=== PATIENT | male | born 1955 | race Caucasian/White ===

== ENCOUNTER 2016-07-23 17:52 | Emergency (ER) | payer OTHER ==
[2016-07-23 17:56] VITALS: TEMP 97.7
--- NOTE | 2016-07-23 18:39 | DX ---
Right shoulder 2 views History: Fall, pain. Comparison: None available. Findings: There is an oblique moderately comminuted fracture of the proximal humeral diametaphysis wi th extension to the surgical neck. There is approximately one shaft width lateral and posterior displ acement with moderate posterior angulation. Alignment at the glenohumeral joint is normal. The acromi oclavicular and coracoclavicular relationships are normal. Impression: Displaced comminuted fracture of the proximal humerus.
[2016-07-23] MEDS ORDERED: HYDROmorphONE/DILAUDID 1 MG/ML SYR ONE (18:47)
--- NOTE | 2016-07-23 18:50 | EDPHY ---
H & P Time Seen by Provider: 07/23/16 17:59 HPI/ROS: HPI Right shoulder injury. 60-year-old male by private vehicle with his sister. This patient slipped on the ice on an outstretched right hand. He presents with isolated right shoulder pain and deformity. He denies any numbness or weakness in his right hand. He is right-hand dominant. He is not on any antiplatelet or anticoagulant medications. ROS: Constitutional: No fever, no chills. No weakness. Eyes: No discharge. No changes in vision. ENT: No sore throat. No nasal congestion or rhinorrhea. Respiratory: No cough. No shortness of breath. Cardiac: No chest pain, no palpitations. Gastrointestinal: No abdominal pain, no vomiting, no diarrhea. Genitourinary: No hematuria. No dysuria or increased frequency with urination. Musculoskeletal: No back pain. No neck pain. As above, denies other extremity pain. Skin: No rashes. Neurological: No headache. No focal weakness or altered sensation. Past medical history: Schizophrenia. His care is through the [facility]. Social history: Nonsmoker. Lives alone. Here with his sister currently Physical Exam: General Appearance: Alert, no distress. This patient is responding to questions appropriately and in full sentences. This patient appears well- hydrated and well-nourished. Head: Normocephalic atraumatic. Face: Facial bones are stable on palpation. Eyes: Pupils equal and round and reactive to light, no pallor or injection. No lid erythema or edema. Respiratory: There are no retractions, lungs are clear to auscultation with good air movement bilaterally. Chest wall is stable to AP and lateral palpation. Cardiovascular: Regular rate and rhythm. No murmur. Gastrointestinal: Abdomen is soft and nontender, no masses, bowel sounds normal. Neurological: Motor sensory function is intact. Cranial nerves are normal. Cerebellar function intact. Skin: Warm and dry, no rashes. No lacerations, abrasions or contusions. Musculoskeletal: Neck is supple and nontender. The trachea is midline. No midline cervical, thoracic, lumbar or sacral tenderness on palpation. No flank tenderness on palpation. Right upper extremity exam: Significant for a deformity and diffuse swelling involving the upper humerus and deltoid region. He is unable to move the right shoulder at all without significant pain. The axillary nerve distribution is intact. The radial, ulnar and median nerve distributions are intact. Good capillary refill in all digits of the right hand. Strong radial and ulnar pulses. Otherwise, extremities are symmetrical, full range of motion. All joints in the bilateral upper and bilateral lower extremities range without pain or impingement except noted. No tenderness on palpation of the long bones in the bilateral upper and bilateral lower extremities except noted. Psychiatric: No agitation. No depression. Database: EKG: Imaging: Right shoulder x-ray series: Displaced comminuted fracture of the proximal humerus. Interpreted by me. Procedures: Emergency department course: IV placed. He was started on IV normal saline with 500 cc to be given over the next hour. 1 mg of IV hydromorphone given for pain. He was placed in a shoulder immobilizer. Orthopedics paged. 7:20 p.m., spoke with Dr. Karan Mccurdy of the Orthopedic service. He has reviewed this patient's x-rays. He agrees with above management and discharg to home. He will see this patient in his office tomorrow. 7:35 p.m., patient re-evaluated. He is in a shoulder immobilizer. Plan for discharge and follow up with Dr. Karan Mccurdy tomorrow in the office discussed with him and his sister. They endorse. He will be sent home with Vicodin for pain control. Return to emergency department precautions were reviewed with him. All of his questions were answered. He was discharged in good condition. Differential Diagnosis: The differential diagnosis on this patient includes but is not limited to proximal humerus fracture. Glenohumeral joint dislocation/subluxation, significant neurovascular injury unlikely. This represents a partial list of diagnoses considered. These considerations are based on history, physical exam , past history, reassessment and diagnostic testing. Smoking Status: Current every day smoker Constitutional: Initial Vital Signs Temperature (C) 36.5 C 07/23/16 17:54 Heart Rate 93 07/23/16 17:54 Respiratory Rate 18 07/23/16 17:54 Blood Pressure 99/66 L 07/23/16 17:54 O2 Sat (%) 99 07/23/16 17:54 O2 Delivery Mode Room Air Allergies/Adverse Reactions: No Known Allergies Allergy (Verified 01/19/16 16:49) Home Medications: Medication Instructions Recorded OLANZapine [ZyPREXA 2.5 mg (*)] 2.5 mg PO 01/19/16 Docusate Sodium [Colace 100 MG (*)] 100 mg PO TID #30 cap 07/23/16 Hydrocodone/APAP 5/325 [[place] 1 - 2 tab PO Q4-6PRN PRN #30 tab 07/23/16 5/325 (*)] Medical Decision Making - Data Points Medications Given: Discontinued Medications Acetaminophen/Hydrocodone Bitart ([place] 5/325mg Prepack#6) 1 btl TAKEHOME EDNOW ONE Stop: 07/23/16 19:44 Last Admin: 07/23/16 19:58 Dose: 1 btl Hydromorphone HCl (Dilaudid) 0.5 mg IVP EDNOW ONE Stop: 07/23/16 19:04 Last Admin: 07/23/16 19:08 Dose: 0.5 mg Hydromorphone HCl (Dilaudid) 0.5 mg IVP EDNOW ONE Stop: 07/23/16 19:16 Last Admin: 07/23/16 19:16 Dose: 0.5 mg Departure - Departure Disposition: Home, Routine, Self-Care Clinical Impression: Closed fracture of right proximal humerus Condition: Good Instructions: Hydrocodone/Acetaminophen (By mouth), Arm Fracture in Adults (ED) Additional Instructions: Read and follow provided instructions. Follow-up with franchise specialist, Dr. Karan Mccurdy, tomorrow as discussed. Call his office at 9:00 a.m. for appointment time.. Take medication as prescribed. Ibuprofen dosin mg every 6 hours with meals for the next 3 days only. Salado/Percocet dosin-2 every 4-[address] not drive on this medication. Return to the emergency department for uncontrolled pain, loss of sensation or weakness in your right hand or other serious concerns. Referrals: Karan Mccurdy MD [Medical Doctor] - As per Instructions Prescriptions: Docusate Sodium [Colace 100 MG (*)] 100 mg PO TID #30 cap Hydrocodone/APAP 5/325 [[place] 5/325 (*)] 1 - 2 tab PO Q4-6PRN PRN #30 tab PRN Reason: Pain, Moderate
[2016-07-23] MEDS ORDERED: HYDROmorphONE/DILAUDID 1 MG/ML SYR IVP ONE ×2 (19:03→19:15)
[2016-07-23] MEDS ORDERED: HYDROCOD/APAP 5/325 PREPACK#6 BTL TAKEHOME ONE (19:43)
[2016-07-23 20:00] VITALS: BP 131/79; PULSE 98; RESP 20; O2SAT 96
== END 2016-07-23 20:00 | disposition home or self-care (01) ==
DX: S42.202A Unspecified fracture of upper end of left humerus, initial encounter for closed fracture (principal); F17.200 Nicotine dependence, unspecified, uncomplicated; W00.0XXA Fall on same level due to ice and snow, initial encounter
CPT/HCPCS: 96374; A4565; J1170

== ENCOUNTER 2016-12-24 12:44 | Emergency (ER) | payer OTHER ==
--- NOTE | 2016-12-24 12:51 | EDPHY ---
H & P Time Seen by Provider: 12/24/16 12:48 HPI/ROS: CHIEF COMPLAINT: Intoxication, fall HISTORY OF PRESENT ILLNESS: The patient is a 61-year-old homeless alcoholic man with a history of schizophrenia who comes to the emergency department after a fall. He was drinking today and while ambulating fell forward. Paramedics were concerned about it tongue laceration but none is visible. He does have cracked lips and looks dehydrated. He has an abrasion to his right forearm. He denies head neck back pain. No other obvious injuries. Moving all extremities. He is awake and alert and answering all questions appropriately. REVIEW OF SYSTEMS: Constitutional: denies: chills, fever, recent illness, recent injury EENTM: See HPI Respiratory: denies: cough, shortness of breath Cardiac: denies: chest pain, irregular heart rate, lightheadedness, palpitations Gastrointestinal/Abdominal: denies: abdominal pain, diarrhea, nausea, vomiting, blood streaked stools Genitourinary: denies: dysuria, frequency, hematuria, pain Musculoskeletal: denies: joint pain, muscle pain Skin: See HPI Neurological: denies: headache, numbness, paresthesia, tingling, dizziness, weakness Hematologic/Lymphatic: denies: blood clots, easy bleeding, easy bruising Immunologic/allergic: denies: HIV/AIDS, transplant EXAM: GENERAL: Well-appearing, well-nourished and in no acute distress. HEAD: Atraumatic, normocephalic. EYES: Pupils equal round and reactive to light, extraocular movements intact, sclera anicteric, conjunctiva are normal. ENT: TMs normal, nares patent, oropharynx clear without exudates. Moist mucous membranes. NECK: Normal range of motion, supple without lymphadenopathy or JVD. Cervical collar cleared by me on arrival LUNGS: Breath sounds clear to auscultation bilaterally and equal. No wheezes rales or rhonchi. HEART: Regular rate and rhythm without murmurs, rubs or gallops. ABDOMEN: Soft, nontender, normoactive bowel sounds. No guarding, no rebound. No masses appreciated. BACK: No CVA tenderness, no spinal tenderness, step-offs or deformities EXTREMITIES: Normal range of motion, no pitting or edema. No clubbing or cyanosis. NEUROLOGICAL: Cranial nerves II through XII grossly intact. Normal speech, normal gait. 5/5 strength, normal movement in all extremities, normal sensation PSYCH: Normal mood, normal affect. SKIN: Abrasion to right forearm Source: Patient Exam Limitations: No limitations - Medical/Surgical History Hx Asthma: No Hx Chronic Respiratory Disease: No Hx Diabetes: No Hx Cardiac Disease: No Hx Renal Disease: No Hx Cirrhosis: No Hx Alcoholism: No Hx HIV/AIDS: No Hx Splenectomy or Spleen Trauma: No Other PMH: Schizophrenia, falls, R arm fx. '05. alcoholic - Family History Significant Family History: No pertinent family hx - Social History Smoking Status: Current every day smoker Alcohol Use: Heavy Drug Use: None Constitutional: Initial Vital Signs Temperature (C) 37.0 C 12/24/16 12:44 Heart Rate 102 H 12/24/16 12:44 Respiratory Rate 18 12/24/16 12:44 Blood Pressure 108/70 12/24/16 12:44 O2 Sat (%) 95 12/24/16 12:44 O2 Delivery Mode Room Air Allergies/Adverse Reactions: No Known Allergies Allergy (Verified 01/19/16 16:49) Home Medications: Medication Instructions Recorded OLANZapine [ZyPREXA 2.5 mg (*)] 2.5 mg PO 01/19/16 Docusate Sodium [Colace 100 MG (*)] 100 mg PO TID #30 cap 07/23/16 Hydrocodone/APAP 5/325 [[place] 1 - 2 tab PO Q4-6PRN PRN #30 tab 07/23/16 5/325 (*)] Medical Decision Making ED Course/Re-evaluation: 2:20 p.m. the patient is ambulatory. He he is increasingly sober. He declines any further workup or testing. He is ready to go. No signs significant injury. His abrasions been cleaned and dressed. He continues to deny neck pain . he is getting dressed. Differential Diagnosis: Partial list of the Differential diagnosis considered include but were not limited to; abrasion, oral injury, intoxication and although unlikely based on the history and physical exam, I also considered head injury, C spine in the. I discussed these differential diagnoses and the plan with the patient as well as the usual and expected course. The patient understands that the diagnosis is provisional and that in medicine we are not always correct and that further workup is often warranted. Usual and customary warnings were given. All of the patient's questions were answered. The patient was instructed to return to the emergency department should the symptoms at all worsen or return, otherwise to followup with the physician as we discussed. Departure - Departure Disposition: Home, Routine, Self-Care Clinical Impression: Abrasion Alcoholic intoxication Qualifiers: Complication of substance-induced condition: uncomplicated Qualified Code(s): F10.920 - Alcohol use, unspecified with intoxication, uncomplicated Condition: Fair Instructions: Alcohol Intoxication (ED), Abrasion (ED) Referrals: Patient,NotPresent [Unknown] - As per Instructions [facility],. [Clinic] - As per Instructions
[2016-12-24 12:58] VITALS: RESP 18; O2SAT 95
[2016-12-24 14:38] VITALS: BP 106/72; PULSE 100; TEMP 98.4
== END 2016-12-24 14:37 | disposition home or self-care (01) ==
LOC: EDUNIT#
DX: S50.811A Abrasion of right forearm, initial encounter (principal); F10.120 Alcohol abuse with intoxication, uncomplicated; F17.200 Nicotine dependence, unspecified, uncomplicated; W19.XXXA Unspecified fall, initial encounter

== ENCOUNTER 2018-08-16 11:19 | Emergency (ER) | payer OTHER ==
[2018-08-16] MEDS ORDERED: TDAP ADULT 0.5 ML INJ (BOOSTRIX) IM ONE (11:37)
--- NOTE | 2018-08-16 11:41 | EDPHY ---
H & P Stated Complaint: ETOH, face lac Time Seen by Provider: 08/16/18 11:36 HPI/ROS: CHIEF COMPLAINT: Head injury, witnessed fall HISTORY OF PRESENT ILLNESS: 63-year-old male history of alcohol abuse, schizophrenia, arrives via ambulance after he had a witnessed fall walking into the [employer]. Brief loss of consciousness. No seizure activity. This was described as a mechanical, non syncopal episode with no seizure activity noted. He admits to heavy beer ingestion this morning. He has no complaints of pain or discomfort. Denies: Nausea, vomiting, chest pain, dyspnea, back pain, abdominal pain, seizure, hallucination.. PRIMARY CARE PROVIDER: REVIEW OF SYSTEMS: 10 systems reviewed and negative with the exception of the elements mentioned in the history of present illness PAST MEDICAL/SURGICAL HISTORY: Negative dependence. Schizophrenia. Cirrhosis secondary to hepatitis C. Alcohol abuse. SOCIAL HISTORY: Self disclosed alcohol use today PHYSICAL EXAM 1) GENERAL: poorly kept,, alert and oriented. Smells of alcohol Appears to be in no acute distress. Answering questions appropriately. 2) HEAD: Normocephalic, right frontal abrasion and hematoma is, laceration measuring 1.5 cm lateral to the right eyebrow 3) HEENT: Pupils equal, round, reactive to light bilaterally. Negative Horners. Nasopharynx, oropharynx, clear. No deformity or angulation of nose. No septal hematoma. No rhinorrhea. No oral trauma. Ears bilaterally with normal tympanic membranes. No hemotympanum. No fluid or blood in the external auditory canal. No raccoon eyes. No Maldonado sign. Edentulous. TMJ bilaterally nontender, facial bones nontender including the zygomatic arch, maxilla mandible. 4) NECK: Patient has self-extricated from pre-hospital cervical collar. He has no midline C-spine pain. I recommended replacement of cervical collar which she will not allow me to perform. 5) LUNGS: Clear to auscultation bilaterally, no wheezes, no rhonchi, no retractions. No obvious signs of trauma. No chest wall pain. No flaring, no grunting. Moving symmetrically. No crepitus. 6) HEART: [Regular rate and rhythm, 7) ABDOMEN: No guarding, no rebound, no focal tenderness, no peritoneal signs, no signs of trauma, no ecchymosis 8) MUSCULOSKELETAL: Moving all extremities, no focal areas of tenderness, no obvious trauma. 9) BACK: No midline vertebral tenderness, no fluctuance, no step-off, no obvious trauma, no visual or palpable abnormality. 10) SKIN: No laceration. No abrasion DIFFERENTIAL DIAGNOSIS: Not necessarily in any particular order, my differential diagnosis includes, but is not limited to, concussion, skull fracture, intraparenchymal contusion, subarachnoid, subdural and epidural hematoma. The patient understands that this diagnosis is provisional and can never be 100% accurate. - Medical/Surgical History Hx Asthma: No Hx Chronic Respiratory Disease: No Hx Diabetes: No Hx Cardiac Disease: No Hx Renal Disease: No Hx Cirrhosis: No Hx Alcoholism: No Hx HIV/AIDS: No Hx Splenectomy or Spleen Trauma: No Other PMH: Schizophrenia, falls, R arm fx. '05. alcoholic - Social History Smoking Status: Current every day smoker Constitutional: Initial Vital Signs Temperature (C) 37.0 C 08/16/18 11:24 Heart Rate 75 08/16/18 11:24 Respiratory Rate 16 08/16/18 11:24 Blood Pressure 122/70 H 08/16/18 11:24 O2 Sat (%) 95 08/16/18 11:24 O2 Delivery Mode Room Air Allergies/Adverse Reactions: No Known Allergies Allergy (Verified 08/16/18 11:26) Home Medications: Medication Instructions Recorded OLANZapine [ZyPREXA 2.5 mg (*)] 2.5 mg PO 01/19/16 Docusate Sodium [Colace 100 MG (*)] 100 mg PO TID #30 cap 07/23/16 Hydrocodone/APAP 5/325 [[place] 1 - 2 tab PO Q4-6PRN PRN #30 tab 07/23/16 5/325 (*)] Medical Decision Making - Diagnostics Imaging Results: Imaging Impressions Cervical Spine CT 08/16/18 11:37 Impression: Multilevel degenerative features, as above-detailed, similar in distribution as seen on a study of 01/15/2016, with no acute cervical osseous abnormality identified. If there is further clinical concern regarding the patient's symptoms, correlative MR imaging could be considered, if otherwise not contraindicated. Findings were discussed with Earl Rooney PA-C at 12:31, on 08/16/2018. Head CT 08/16/18 11:37 Impression: Chronic features as-detailed, with no acute intracranial abnormality identified on this unenhanced CT evaluation. If there is further clinical concern regarding the patient's symptoms, MR imaging is suggested, if not otherwise contraindicated. Findings were discussed with Earl Rooney PA-C at 12:31, on 08/16/2018. Procedures: Procedure: Laceration repair with tissue adhesive Verbal consent was obtained from the patient. The 1.5 cm laceration on the right lateral eyebrow. The wound was scrubbed and explored to its base with a gloved finger. No foreign body seen, no foreign bodies palpated. There were no deep structures involved. The wound was repaired with tissue adhesive. The procedure was performed by myself. Patient has been informed that scarring will occur, although efforts have been made to minimize this. ED Course/Re-evaluation: 11:40 a.m.: Head CT ordered in this patient for trauma for the following indication: Loss of consciousness and intoxicated. Care of patient under supervision of secondary supervising physician Dr Putnam with whom I discussed case. 1:10 p.m.: Re-evaluation. Patient has self-extricated from a cervical collar. I have discussed his imaging results with him. He is answering questions appropriately. I have offered to [facility] which he declines but he would like to go home. I have observed him ambulating stable steady gait, clear speech pattern, awake alert oriented person place time events. Recommend moderation with alcohol use in the future. - Data Points Medications Given: Discontinued Medications Diphtheria/Tetanus/Acell Pertussis (Boostrix) 0.5 ml IM .ONCE ONE Stop: 08/16/18 11:38 Last Admin: 08/16/18 11:38 Dose: Not Given Departure - Departure Disposition: Home, Routine, Self-Care Clinical Impression: Alcohol abuse Laceration of forehead Qualifiers: Encounter type: initial encounter Qualified Code(s): S01.81XA - Laceration without foreign body of other part of head, initial encounter Condition: Good Instructions: Laceration (ED) Additional Instructions: ALTHOUGH THERE IS NO EVIDENCE OF SERIOUS HEAD INJURY AT THIS TIME, DELAYED SIGNS CAN APPEAR 24 TO 48 HOURS AFTER INJURY. PLEASE RETURN TO THE EMERGENCY DEPARTMENT (ED) IMMEDIATELY IF YOU HAVE INCREASED HEADACHE, PERSISTENT HEADACHE , VOMITING, WEAKNESS, CONFUSION OR VISUAL PROBLEMS. WE RECOMMEND THAT YOU DO NOT RESUME CONTACT SPORTS OR ACTIVITIES THAT TAKE COORDINATION OR BALANCE SUCH SKIING OR RIDING A BICYCLE UNTIL CLEARED TO DO SO BY YOUR DOCTOR OR BY A NEUROLOGIST. Referrals: [facility],. [Clinic] - As per Instructions
[2018-08-16] MEDS ORDERED: SKIN ADHESIVE (DERMABOND) 1 EACH TP ONE (12:43)
[2018-08-16 13:24] VITALS: BP 125/78
== END 2018-08-16 13:24 | disposition home or self-care (01) ==
LOC: EDUNIT#
PROC: 08QNXZZ Repair Right Upper Eyelid, External Approach (ICD-10-PCS; principal; 2018-08-16)
DX: S01.81XA Laceration without foreign body of other part of head, initial encounter (principal); F10.920 Alcohol use, unspecified with intoxication, uncomplicated; F17.200 Nicotine dependence, unspecified, uncomplicated; F20.9 Schizophrenia, unspecified; Z23 Encounter for immunization; W19.XXXA Unspecified fall, initial encounter; Y92.512 Supermarket, store or market as the place of occurrence of the external cause; Y99.9 Unspecified external cause status; Y93.9 Activity, unspecified

== ENCOUNTER 2018-08-16 15:30 | Emergency (ER) | payer OTHER ==
--- NOTE | 2018-08-16 15:32 | EDPHY ---
HPI/HX/ROS/PE/MDM Narrative: CHIEF COMPLAINT: AMS HPI: This patient is a 63 year old male with history of schizophrenia and alcoholism. He was discharged from this emergency department about two hours ago after evaluation for a witnessed fall and heavy EtOH consumption. The patient had a negative CT of the head and c-spine at that time and was discharged. He was offered [facility], but refused at that time. Shortly following discharge, police noted him stumbling in the street on his way home and called EMS after the patient was not answered questions appropriately. He arrives for further evaluation. He denies any changes in symptoms or further concerns since discharge. He does admit to alcohol consumption today. REVIEW OF SYSTEMS: Unable to obtain. PMH: Schizophrenia, alcoholism. SOCIAL HISTORY: Lives in [place]. Admits to alcohol use today. PHYSICAL EXAM: General:Patient is alert, in no acute distress. Ambulating. Respiratory:No respiratory distress. Breath sounds normal bilaterally. Cardiovascular: Regular rate and rhythm. Normal cap refill. Extremities: Normal appearance. Full range of motion. Neuro: No focal deficits. ED Course: 63 year old male who was discharged one hour ago, then brought back in by EMS at PD request as he did not appear to be mentating properly. Currently, patient is ambulating and he is alert and oriented. Plan for case management consult. Patient has spoken with case management. He continues to be alert and oriented and would like to go home. Case management will provide a cab voucher for the patient to take him home. He has no further complaints or concerns. Plan for discharge home in good condition. Return precautions discussed. He is comfortable with this plan. General Initial Vital Signs: Initial Vital Signs Temperature (C) 36.3 C 08/16/18 15:35 Heart Rate 89 08/16/18 15:35 Respiratory Rate 16 08/16/18 15:35 Blood Pressure 142/73 H 08/16/18 15:35 O2 Sat (%) 94 08/16/18 15:35 O2 Delivery Mode Room Air Allergies/Adverse Reactions: No Known Allergies Allergy (Verified 08/16/18 11:26) Home Medications: Medication Instructions Recorded OLANZapine [ZyPREXA 2.5 mg (*)] 2.5 mg PO 01/19/16 Docusate Sodium [Colace 100 MG (*)] 100 mg PO TID #30 cap 07/23/16 Hydrocodone/APAP 325 [[place] 1 - 2 tab PO Q4-6PRN PRN #30 tab 07/23/16 5/325 (*)] Departure - Departure Disposition: Home, Routine, Self-Care Clinical Impression: Alcohol abuse Condition: Good Instructions: Abuse of Alcohol (ED) Additional Instructions: Follow up with your providers at the [facility]. Referrals: [facility],. [Clinic] - As per Instructions Report Scribed for: Ritchie Cortes Report Scribed by: Jaqui Walker Date of Report: 08/16/18 Time of Report: 16:29 Physician Review and Approval Statement: Portions of this note were transcribed by an ED scribe. I personally performed the history, physical exam, and medical decision making; and confirm the accuracy of the information in the transcribed note.
[2018-08-16 15:37] VITALS: BP 142/73
== END 2018-08-16 16:08 | disposition home or self-care (01) ==
LOC: EDUNIT#
DX: F10.120 Alcohol abuse with intoxication, uncomplicated (principal); F20.9 Schizophrenia, unspecified; W19.XXXA Unspecified fall, initial encounter; Y92.410 Unspecified street and highway as the place of occurrence of the external cause; Y93.9 Activity, unspecified; Y99.9 Unspecified external cause status

== ENCOUNTER 2018-10-30 09:22 | Emergency (ER) | payer OTHER ==
[2018-10-30 09:28] VITALS: BP 112/56
[2018-10-30] MEDS ORDERED: LET GEL TOPICAL 1 EA SYR TP ONE ×2 (09:32→09:35)
[2018-10-30] MEDS ORDERED: TDAP ADULT 0.5 ML INJ (BOOSTRIX) IM ONE (09:35)
--- NOTE | 2018-10-30 09:38 | EDPHY ---
H & P Stated Complaint: ETOH - fell, laceration to left eyebrow Time Seen by Provider: 10/30/18 09:25 HPI/ROS: CHIEF COMPLAINT: Head injury, alcohol use HISTORY OF PRESENT ILLNESS: 63-year-old male arrives via ambulance, not a trauma activation, after he was walking back from the liquor store after having drank some alcohol, tripped and fell impacting the vertex of his head. He notes brief loss of consciousness. He notes that this was a mechanical non syncopal episode. Was called by bystanders he noticed bleeding on his face. No pre-hospital cervical immobilization as he was answering questions appropriately and had no complaints of pain or discomfort no neurologic deficits. PRIMARY CARE PROVIDER: REVIEW OF SYSTEMS: 10 systems reviewed and negative with the exception of the elements mentioned in the history of present illness PAST MEDICAL/SURGICAL HISTORY: no anticoagulant use, no relevant medical/ surgical history. Positive for alcohol with some SOCIAL HISTORY: Positive for self disclosed alcohol use PHYSICAL EXAM 1) GENERAL: Well-developed, well-nourished, alert and oriented. Appears to be in no acute distress. Answering questions appropriately. 2) HEAD: Normocephalic, abrasion and skin tear to the vertex of scalp. 3) HEENT: Pupils equal, round, reactive to light bilaterally. Negative Horners. Nasopharynx, oropharynx, clear. No deformity or angulation of nose. No septal hematoma. No rhinorrhea. No oral trauma. Ears bilaterally with normal tympanic membranes. No hemotympanum. No fluid or blood in the external auditory canal. No raccoon eyes. No Maldonado sign. Edentulous, no malocclusion , TMJ bilaterally nontender, facial bones nontender including the zygomatic arch , maxilla mandible. 4) NECK: No cervical collar is on. Posterior cervical spine is nontender, no stepoff, no effusion. Full range of motion which does not elicit any midline cervical spine pain, no posterior midline tenderness, no step-off. Cervical collar placed at this time due to patient's alcohol use. 5) LUNGS: Clear to auscultation bilaterally, no wheezes, no rhonchi, no retractions. No obvious signs of trauma. No chest wall pain. No flaring, no grunting. Moving symmetrically. No crepitus. 6) HEART: [Regular rate and rhythm, 7) ABDOMEN: No guarding, no rebound, no focal tenderness, no peritoneal signs, no signs of trauma, no ecchymosis 8) MUSCULOSKELETAL: Moving all extremities, no focal areas of tenderness, no obvious trauma. 9) BACK: Patient logrolled while holding inline traction. The patient has no midline C-spine pain or visible evidence of trauma. 10) SKIN: No laceration. 11) CERVICAL SPINE NEURO EXAM: Bilateral reflexes of biceps triceps brachioradialis intact equal bilaterally Motor exam: deltoid, biceps, wrist extension, tricep, finger extension, finger flexion, finger abduction intact equal bilaterally 5/5 DIFFERENTIAL DIAGNOSIS: Not necessarily in any particular order, my differential diagnosis includes, but is not limited to, concussion, skull fracture, intraparenchymal contusion, subarachnoid, subdural and epidural hematoma. The patient understands that this diagnosis is provisional and can never be 100% accurate. - Personal History Current Tetanus Diphtheria and Acellular Pertussis (TDAP): No - Medical/Surgical History Hx Asthma: No Hx Chronic Respiratory Disease: No Hx Diabetes: No Hx Cardiac Disease: No Hx Renal Disease: No Hx Cirrhosis: No Hx Alcoholism: No Hx HIV/AIDS: No Hx Splenectomy or Spleen Trauma: No Other PMH: Schizophrenia, falls, R arm fx. '05. alcoholic - Social History Smoking Status: Current every day smoker Constitutional: Initial Vital Signs Temperature (C) 36.8 C 10/30/18 09:25 Heart Rate 108 H 10/30/18 09:25 Respiratory Rate 16 10/30/18 09:25 Blood Pressure 112/56 L 10/30/18 09:25 O2 Sat (%) 96 10/30/18 09:25 O2 Delivery Mode Room Air Allergies/Adverse Reactions: No Known Allergies Allergy (Verified 08/16/18 11:26) Home Medications: Medication Instructions Recorded OLANZapine [ZyPREXA 2.5 mg (*)] 2.5 mg PO 01/19/16 Docusate Sodium [Colace 100 MG (*)] 100 mg PO TID #30 cap 07/23/16 Hydrocodone/APAP 5/325 [[place] 1 - 2 tab PO Q4-6PRN PRN #30 tab 07/23/16 5/325 (*)] Medical Decision Making - Diagnostics Imaging Results: Imaging Impressions Cervical Spine CT 10/30/18 09:31 Impression: 1. Anterior dislocation of the left temporomandibular joint with no visible fracture. 2. No acute cervical fracture identified. If there is persistent pain or neurologic deficit, consider MRI and/or flexion and extension views if clinically indicated. 3. Stable mild compression fracture of T2 without retropulsion. 4. Stable multilevel degenerative change and spondylolistheses. Findings discussed with FORTINO Obrien on 10/30/2018 at 10:[address] 10/30/18 09:31 Impression: 1. Anterior dislocation of the left temporomandibular joint, age indeterminate, new since July 2018. 2. Stable bifrontal encephalomalacia with diffuse cerebral atrophy with periventricular and subcortical low attenuation consistent with chronic microvascular ischemic gliosis. Images myself ED Course/Re-evaluation: 9:36 a.m.: Head CT ordered in this patient for trauma for the following indication: Loss of consciousness and intoxicated. Will also obtain imaging of the C-spine 11:00 a.m.: Patient was re-evaluated with serial exams. Specifically, there was a note of an anterior dislocation of the left TMJ. I have examined the patient repeatedly and he has no clinical evidence of dislocation, he has full and pain-free range of motion of the TMJ with no complaints of pain no deformity. Plan at this time will be discharged home. He is ambulating without assistance, stable steady gait, clear speech pattern. - Data Points Medications Given: Discontinued Medications Diphtheria/Tetanus/Acell Pertussis (Boostrix) 0.5 ml IM .ONCE ONE Stop: 10/30/18 09:36 Last Admin: 10/30/18 11:05 Dose: Not Given Tetracaine/Epinephrine/Lidocaine (Let Gel Topical) 1 ea TP EDNOW ONE Stop: 10/30/18 09:36 Last Admin: 10/30/18 09:37 Dose: 1 ea Departure - Departure Disposition: Home, Routine, Self-Care Clinical Impression: Alcohol abuse, Head injury due to trauma Condition: Good Instructions: Head Injury (ED) Additional Instructions: ALTHOUGH THERE IS NO EVIDENCE OF SERIOUS HEAD INJURY AT THIS TIME, DELAYED SIGNS CAN APPEAR 24 TO 48 HOURS AFTER INJURY. PLEASE RETURN TO THE EMERGENCY DEPARTMENT (ED) IMMEDIATELY IF YOU HAVE INCREASED HEADACHE, PERSISTENT HEADACHE , VOMITING, WEAKNESS, CONFUSION OR VISUAL PROBLEMS. WE RECOMMEND THAT YOU DO NOT RESUME CONTACT SPORTS OR ACTIVITIES THAT TAKE COORDINATION OR BALANCE SUCH SKIING OR RIDING A BICYCLE UNTIL CLEARED TO DO SO BY YOUR DOCTOR OR BY A NEUROLOGIST. Referrals: [facility],. [Clinic] - As per Instructions
--- NOTE | 2018-10-30 12:43 | ASMTCMCOM ---
CM Note CM Note Notes: Spoke w/pt re:his ETOH abuse. Pt states he is not interested in quitting or reducing his ETOH use. Pt states he lives in an apt in [place] [facility] This CM offered to call and schedule a followup appt w/his PCP at the [facility] but the pt declined. Pt has a sister Janis Zaragoza ([phone]) and nephew Alfredito Zaragoza ([phone]) who live locally, and a brother who lives in [place]. Per past chart review pt has been followed by [facility] social workers Alfredito ([phone]) or Paty ([phone]) in the past. Pt stated he didn't need any CM assistance at this time and was planning on paying for his own cab ride home. CM available for further assistance if needed. Date Signed: 10/30/2018 12:42 PM Electronically Signed By:Kiya Moore RN
== END 2018-10-30 11:19 | disposition home or self-care (01) ==
LOC: EDUNIT#
DX: S06.9X9A Unspecified intracranial injury with loss of consciousness of unspecified duration, initial encounter (principal); S03.02XA Dislocation of jaw, left side, initial encounter; S22.020A Wedge compression fracture of second thoracic vertebra, initial encounter for closed fracture; G93.89 Other specified disorders of brain; F10.920 Alcohol use, unspecified with intoxication, uncomplicated; W01.198A Fall on same level from slipping, tripping and stumbling with subsequent striking against other object, initial encounter; Y93.01 Activity, walking, marching and hiking
CPT/HCPCS: L0120

== ENCOUNTER 2018-10-30 19:26 | Inpatient (IN) | payer OTHER ==
[2018-10-30] MEDS ORDERED: DILTIAZEM 25 MG/5 ML VIAL IVP ONE ×3 (19:30→19:53)
--- NOTE | 2018-10-30 19:37 | EDPHY ---
H & P Time Seen by Provider: 10/30/18 19:28 HPI/ROS: Chief complaint. Found down HPI. 63-year-old male here emergently by EMS as a limited trauma activation. He was found lying on his back on the sidewalk. Patient does not recall how he ended up lying on the sidewalk. He thinks he hit his head but isn't sure. He is unsure about loss of consciousness. He was seen earlier in the ED today for alcohol intoxication and eyebrow laceration. Patient is found to be in atrial fibrillation per EMS with rapid ventricular response. He was hypotensive. Patient denies chest pain or shortness of breath though he is tachypneic. He denies abdominal pain or back pain. He denies neck pain. He has abrasions to his head, swollen left arm of 2-3 dirt days duration per patient but does not know if there was an injury. He also has abrasions to both knees that appear to be pressure sores. He has abrasions to his back when we log-rolled him. ROS 10 systems were reviewed and negative with the exception of the elements mentioned in the history of present illness Past Medical/Surgical History: Schizophrenia, frequent falls, alcoholism, right arm fracture Social History: Single, daily smoker, recent alcohol Smoking Status: Current every day smoker Physical Exam: General Appearance: Alert well-developed male moderate distress vital signs significant for heart rate 183 and blood pressure 84/52 Eyes: Pupils equal and round no pallor or injection. ENT, no hemotympanum or Maldonado sign. No oral pharyngeal or dental trauma. Abrasions to his forehead and scalp. Respiratory: No retractions but tachypnea. Lungs are clear Cardiovascular: Irregular irregular rate and rhythm with tachycardia Gastrointestinal: Abdomen is soft and nontender, no masses, bowel sounds normal. Neurological: Awake and alert, sensory and motor exams grossly normal. Skin: Multiple abrasions and pressure sores Musculoskeletal: Neck is nontender. No T, L, S spine tenderness Extremities swollen left arm. Pressure sores to both knees Psychiatric: Patient is oriented X 3, there is no agitation. Constitutional: Initial Vital Signs Temperature (C) 36.3 C 10/30/18 19:25 Heart Rate 183 H 10/30/18 19:25 Respiratory Rate 40 H 10/30/18 19:25 Blood Pressure 84/52 L 10/30/18 19:25 O2 Sat (%) 93 10/30/18 19:25 O2 Delivery Mode Nasal Cannula O2 (L/minute) 4 Allergies/Adverse Reactions: No Known Allergies Allergy (Verified 10/30/18 19:32) Home Medications: Medication Instructions Recorded OLANZapine [Zyprexa] 20 mg PO DAILY 10/30/18 Medical Decision Making - Diagnostics Imaging Results: Imaging Impressions Chest X-Ray 10/30/18 19:34 Impression: 1. No active cardiopulmonary disease seen. 2. Old healed fractures mid to lower ribs on the left as well as unhealed fracture left humeral head. Forearm X-Ray 10/30/18 19:54 Impression: 1. Complex acute fracture proximal ulna at the olecranon with displaced fracture fragments. 2. Chronic fracture left humeral neck with proximal displacement of the humeral shaft. Humerus X-Ray 10/30/18 19:54 Impression: 1. Complex acute fracture proximal ulna at the olecranon with displaced fracture fragments. 2. Chronic fracture left humeral neck with proximal displacement of the humeral shaft. Cervical Spine CT 10/30/18 19:55 Impression: 1. No acute abnormality seen associated with the cervical spine. 2. Stable minimal subluxations at C3-C4 and at C4-C5. 3. Stable degenerative disk disease lower cervical spine with facet hypertrophy throughout the cervical spine. Findings discussed with Jamarcus Ochoa M.D. at 2117 hour, 10/30/2018. Head CT 10/30/18 19:55 Impression: 1. No new intracranial abnormality seen. 2. Encephalomalacia inferior medial aspect of each frontal lobe presumably from previous trauma. 3. Moderate cerumen in the external auditory canal bilaterally. If symptoms worsen, additional imaging may be necessary. Findings discussed with Jamarcus Ochoa M.D. at 21:17 hour, 10/30/2018. Chest/Thorax CTA 10/30/18 20:03 Impression: 1. No evidence of pulmonary embolus using CT protocol. 2. Stable chronic fractures with mild compression superior endplate of T2 along with fractures involving proximal left humeral head, right proximal humeral shaft, and bilateral ribs along with manubrium. 3. Biapical blebs as well as bleb at the left base. Findings discussed with Jamarcus Ochoa M.D. at 21:47 hour, 10/30/2018. Abdomen CT 10/30/18 20:04 Impression: 1. Moderate cirrhosis with ascites. 2. Portal hypertension suspected with recanalized umbilical vein and collateral varices over the anterior abdomen in the subcutaneous tissues as well as varicosities around the distal esophagus and around the rectum.. 3. Distended gallbladder with gallbladder wall thickening. This could be related to underlying liver disease. Consider correlation with right upper quadrant ultrasound as clinically directed. 4. Haziness around the pancreatic head and tail that could be related to underlying pancreatitis versus secondary to is enteric edema with underlying liver disease. 5. Thickening of the ascending colon to the hepatic flexure. Consider colitis possibly related to underlying infectious etiology or anemia from previous hypotension. 6. No evidence of acute fracture associated with the lumbar spine or pelvis. Findings discussed with Jamarcus Ochoa M.D. at 21:50 hour, 10/30/2018. Lumbar Spine CT 10/30/18 20:04 Impression: 1. Moderate cirrhosis with ascites. 2. Portal hypertension suspected with recanalized umbilical vein and collateral varices over the anterior abdomen in the subcutaneous tissues as well as varicosities around the distal esophagus and around the rectum.. 3. Distended gallbladder with gallbladder wall thickening. This could be related to underlying liver disease. Consider correlation with right upper quadrant ultrasound as clinically directed. 4. Haziness around the pancreatic head and tail that could be related to underlying pancreatitis versus secondary to is enteric edema with underlying liver disease. 5. Thickening of the ascending colon to the hepatic flexure. Consider colitis possibly related to underlying infectious etiology or anemia from previous hypotension. 6. No evidence of acute fracture associated with the lumbar spine or pelvis. Findings discussed with Jamarcus Ochoa M.D. at 21:50 hour, 10/30/2018. Chest x-ray interpreted by me shows old healing fractures to left ribs. No pneumonia or pneumothorax Forearm x-ray shows acute fracture of the olecranon and chronic fracture of the left humeral neck Procedures: 2nd IV is started. 2 L of saline given and pressure comes up to 112/56. Heart rate 145 Pads are placed anterior and posterior on the left chest for possible cardioversion. Diltiazem bolus and drip with blood pressure elevated I-STAT shows a troponin of 0.09 Posterior long-arm splint is placed left arm for olecranon fracture. Post splint application shows good anatomic position and distal motor vascular sensitivity to be intact Patient is seen in the emergency department by Dr. Duran for trauma surgery Consult called to Dr. Mccurdy for Orthopedics--he sees the patient in the ED ED Course/Re-evaluation: Patient denies toxic alcohols and aspirin use. 8:45 p.m. Increasing the diltiazem drip as heart rate is 162 in AFib. Blood pressure 103/57 Recheck again at 9:30 a.m. Patient is stable. Heart rate 156 still in atrial fibrillation. Blood pressure 106 over 65. C-spine reviewed by me and is normal per Dr. Marsh. The patient has no neck pain. Collar is removed. Palpation the neck reveals no tenderness. Passive and active range of motion elicits no pain or neurologic findings. The cervical collar is discontinued by me at 9:30 p.m. Patient's lactate is elevated. He is given fluids per protocol. At this point there is no obvious evidence of infection. No antibiotics are given. Blood cultures are obtained however. This is discussed with hospitalist who agrees with no antibiotics currently. Venous and arterial pH are significant for acidosis but improving following fluid administration. Patient's mental status was improving following fluid administration Differential Diagnosis: Increased anion gap metabolic acidosis differential is use. Likely etiology is elevated lactate. No evidence for infection. Probably secondary to dehydration and toxication. Patient is alcohol intoxication, elevated troponin , rhabdomyolysis, acute left olecranon fracture, new onset atrial fibrillation with initial hypotension. Rate is controlled with diltiazem. Critical Care Time: Critical care time exclusive procedures 60 min - Data Points Laboratory Results: Laboratory Results 10/30/18 19:27 10/30/18 19:27 10/30/18 10/30/18 10/30/18 19:58 19:37 19:36 WBC RBC Hgb POC Hgb 15.0 gm/dL gm/dL (13.7-17.5) Hct POC Hct 44 % % (40-51) MCV MCH MCHC RDW Plt Count MPV Neut % (Auto) Lymph % (Auto) [place] % (Auto) Eos % (Auto) Baso % (Auto) Nucleat RBC Rel Count Absolute Neuts (auto) Absolute Lymphs (auto) Absolute Monos (auto) Absolute Eos (auto) Absolute Basos (auto) Absolute Nucleated RBC Immature Gran % Immature Gran # RBC/WBC/PLT Morphology Platelet Estimate Microcytic Cells Oval Macrocytes PT INR APTT D-Dimer Puncture Site VENOUS Patient Temperature 37.0 DEGREES DEGREES VBG pH 7.11 L (7.31-7.42) VBG HCO3 8 mEQ/L L mEQ/L (22-26) VBG Total CO2 9 mEq/L L mEq/L (21-27) VBG O2 Saturation 71 % % (65-75) VBG Base Excess -20.3 mEq/L L mEq/L (-2.5-2.5) VBG Lactic Acid 17.0 mmol/L H mmol/L (0.7-2.1) Mixed VBG pCO2 26 mmHg L mmHg (40-44) Mixed VBG pO2 58 mmHG H mmHG (35-40) POC Sodium 127 mEq/L L mEq/L (135-145) Sodium POC Potassium 4.1 mEq/L mEq/L (3.3-5.0) Potassium POC Chloride 92 mEq/L L mEq/L (97-110) Chloride Carbon Dioxide POC Total CO2 9 mEq/L L* mEq/L (22-31) Anion Gap POC BUN 16 mg/dL mg/dL (7-23) BUN Creatinine POC Creatinine 1.8 mg/dL H mg/dL (0.7-1.3) Estimated GFR Glucose POC Glucose 88 mg/dL mg/dL (70-100) Serum Osmolality Calcium Total Bilirubin Conjugated Bilirubin Unconjugated Bilirubin Creatine Kinase CK-MB (CK-2) Fraction CK-MB (CK-2) % Creatine Kinase Interp POC Troponin I 0.09 ng/mL H ng/mL (0.00-0.08) Salicylates Ethyl Alcohol 10/30/18 10/30/18 10/30/18 19:30 19:27 19:27 WBC RBC Hgb POC Hgb Hct POC Hct MCV MCH MCHC RDW Plt Count MPV Neut % (Auto) Lymph % (Auto) [place] % (Auto) Eos % (Auto) Baso % (Auto) Nucleat RBC Rel Count Absolute Neuts (auto) Absolute Lymphs (auto) Absolute Monos (auto) Absolute Eos (auto) Absolute Basos (auto) Absolute Nucleated RBC Immature Gran % Immature Gran # RBC/WBC/PLT Morphology Platelet Estimate Microcytic Cells Oval Macrocytes PT INR APTT D-Dimer Puncture Site Patient Temperature VBG pH VBG HCO3 VBG Total CO2 VBG O2 Saturation VBG Base Excess VBG Lactic Acid Mixed VBG pCO2 Mixed VBG pO2 POC Sodium Sodium 126 mEq/L L mEq/L (135-145) POC Potassium Potassium 4.5 mEq/L mEq/L (3.5-5.2) POC Chloride Chloride 90 mEq/L L mEq/L (97-110) Carbon Dioxide 7 mEq/l L* mEq/l (22-31) POC Total CO2 Anion Gap 29 mEq/L H mEq/L (6-14) POC BUN BUN 15 mg/dL mg/dL (7-23) Creatinine 1.9 mg/dL H mg/dL (0.7-1.3) POC Creatinine Estimated GFR 36 Glucose 86 mg/dL mg/dL (70-100) POC Glucose Serum Osmolality 351 mosmo/kg H mosmo/kg (280-297) Calcium 7.8 mg/dL L mg/dL (8.5-10.4) Total Bilirubin 2.9 mg/dL H mg/dL (0.1-1.4) Conjugated Bilirubin 1.4 mg/dL H mg/dL (0.0-0.5) Unconjugated Bilirubin 1.5 mg/dL H mg/dL (0.0-1.1) Creatine Kinase 4279 IU/L H IU/L (0-224) CK-MB (CK-2) Fraction 45.00 ng/mL H ng/mL (0.00-4.55) CK-MB (CK-2) % 1.1 % % (0.0-4.0) Creatine Kinase Interp NEGATIVE (NEGATIVE) POC Troponin I Salicylates < 1.0 mg/dL L mg/dL (2.0-20.0) Ethyl Alcohol 247 mg/dL H mg/dL (0-10) 10/30/18 10/30/18 19:27 19:27 WBC 13.86 10^3/uL H 10^3/uL (3.80-9.50) RBC 3.69 10^6/uL L 10^6/uL (4.40-6.38) Hgb 12.4 g/dL L g/dL (13.7-17.5) POC Hgb Hct 38.1 % L % (40.0-51.0) POC Hct MCV 103.3 fL H fL (81.5-99.8) MCH 33.6 pg pg (27.9-34.1) MCHC 32.5 g/dL g/dL (32.4-36.7) RDW 17.7 % H % (11.5-15.2) Plt Count 84 10^3/uL L 10^3/uL (150-400) MPV 10.7 fL fL (8.7-11.7) Neut % (Auto) 80.2 % H % (39.3-74.2) Lymph % (Auto) 5.3 % L % (15.0-45.0) [place] % (Auto) 12.0 % % (4.5-13.0) Eos % (Auto) 0.1 % L % (0.6-7.6) Baso % (Auto) 0.7 % % (0.3-1.7) Nucleat RBC Rel Count 0.1 % % (0.0-0.2) Absolute Neuts (auto) 11.12 10^3/uL H 10^3/uL (1.70-6.50) Absolute Lymphs (auto) 0.73 10^3/uL L 10^3/uL (1.00-3.00) Absolute Monos (auto) 1.66 10^3/uL H 10^3/uL (0.30-0.80) Absolute Eos (auto) 0.01 10^3/uL L 10^3/uL (0.03-0.40) Absolute Basos (auto) 0.10 10^3/uL 10^3/uL (0.02-0.10) Absolute Nucleated RBC 0.01 10^3/uL 10^3/uL (0-0.01) Immature Gran % 1.7 % H % (0.0-1.1) Immature Gran # 0.24 10^3/uL H 10^3/uL (0.00-0.10) RBC/WBC/PLT Morphology TNP Platelet Estimate DECREASED L (ADEQ) Microcytic Cells 1+ H Oval Macrocytes 3+ H PT 18.4 SEC H SEC (12.0-15.0) INR 1.61 H (0.83-1.16) APTT 39.6 SEC H SEC (23.0-38.0) D-Dimer 11.45 ug/mLFEU H ug/mLFEU (0.00-0.50) Puncture Site Patient Temperature VBG pH VBG HCO3 VBG Total CO2 VBG O2 Saturation VBG Base Excess VBG Lactic Acid Mixed VBG pCO2 Mixed VBG pO2 POC Sodium Sodium POC Potassium Potassium POC Chloride Chloride Carbon Dioxide POC Total CO2 Anion Gap POC BUN BUN Creatinine POC Creatinine Estimated GFR Glucose POC Glucose Serum Osmolality Calcium Total Bilirubin Conjugated Bilirubin Unconjugated Bilirubin Creatine Kinase CK-MB (CK-2) Fraction CK-MB (CK-2) % Creatine Kinase Interp POC Troponin I Salicylates Ethyl Alcohol Medications Given: Pantoprazole Sodium (Protonix) 40 mg IVP Q12HRS YANELY Stop: 04/28/19 21:29 Last Admin: 10/30/18 21:34 Dose: 40 mg Discontinued Medications Diltiazem HCl (Cardizem 25 Mg/5 Ml Vial) 10 mg IVP EDNOW ONE Stop: 10/30/18 19:54 Last Admin: 10/30/18 19:54 Dose: 10 mg Diltiazem HCl (Cardizem 25 Mg/5 Ml Vial) 10 mg IVP EDNOW ONE Stop: 10/30/18 19:53 Last Admin: 10/30/18 19:58 Dose: Not Given Diphtheria/Tetanus/Acell Pertussis (Boostrix) 0.5 ml IM .ONCE ONE Stop: 10/30/18 21:32 Last Admin: 10/30/18 21:44 Dose: 0.5 ml Sodium Chloride (Ns) 2,000 mls @ 0 mls/hr IV ONCE ONE PRN Reason: Wide Open Stop: 10/30/18 19:42 Last Admin: 10/30/18 19:42 Dose: 2,000 mls Diltiazem/Dextrose (Diltiazem 125mg/125ml (Premix)) 125 mls @ 0 mls/hr IV EDNOW ONE; As Directed PRN Reason: Protocol Stop: 10/30/18 19:53 Last Admin: 10/30/18 20:09 Dose: 125 mls Sodium Chloride (Ns) 1,000 mls @ 0 mls/hr IV EDNOW ONE; Wide Open PRN Reason: Protocol Stop: 10/30/18 20:59 Last Admin: 10/30/18 21:03 Dose: Not Given Sodium Chloride (Ns) 1,000 mls @ 0 mls/hr IV EDNOW ONE; Wide Open PRN Reason: Protocol Stop: 10/30/18 20:59 Last Admin: 10/30/18 21:02 Dose: Not Given Sodium Chloride (Ns) 1,900 mls @ 3,800 mls/hr 30 ml/kg infuse over 30 min ( 1900 ml) IV EDNOW ONE PRN Reason: Protocol Stop: 10/30/18 21:26 Last Admin: 10/30/18 21:04 Dose: 1,900 mls Point of Care Test Results: Chemistry 10/30/18 10/30/18 19:37 19:36 POC Sodium 127 mEq/L L mEq/L (135-145) POC Potassium 4.1 mEq/L mEq/L (3.3-5.0) POC Chloride 92 mEq/L L mEq/L (97-110) POC Total CO2 9 mEq/L L* mEq/L (22-31) POC BUN 16 mg/dL mg/dL (7-23) POC Creatinine 1.8 mg/dL H mg/dL (0.7-1.3) POC Glucose 88 mg/dL mg/dL (70-100) POC Troponin I 0.09 ng/mL H ng/mL (0.00-0.08) ISTAT H&H 10/30/18 19:37 POC Hgb 15.0 gm/dL gm/dL (13.7-17.5) POC Hct 44 % % (40-51) Departure - Departure Disposition: [facility] Inpatient Acute Clinical Impression: Severe sepsis, Elevated troponin Alcoholic intoxication Qualifiers: Complication of substance-induced condition: with unspecified complication Qualified Code(s): F10.929 - Alcohol use, unspecified with intoxication, unspecified Rhabdomyolysis Qualifiers: Rhabdomyolysis type: traumatic Encounter type: initial encounter Qualified Code (s): T79.6XXA - Traumatic ischemia of muscle, initial encounter Atrial fibrillation Qualifiers: Atrial fibrillation type: unspecified Qualified Code(s): I48.91 - Unspecified atrial fibrillation Olecranon fracture Qualifiers: Encounter type: initial encounter Fracture type: closed Laterality: left Qualified Code(s): S52.022A - Displaced fracture of olecranon process without intraarticular extension of left ulna, initial encounter for closed fracture Condition: Critical
[2018-10-30] MEDS ORDERED: NS 2,000 ML IV ONE (19:41)
[2018-10-30] MEDS ORDERED: DILTIAZEM HCL/D5W 125 ML IV ONE (19:52)
[2018-10-30 20:05] LABS: INR 1.61 (0.83-1.16); PROTIME(PATIENT) 18.4 SEC (12.0-15.0)
[2018-10-30 20:12] LABS: PLATELET COUNT 84 10^3/uL (150-400)
[2018-10-30] MEDS ORDERED: IOPAMIDOL (ISOVUE 370) 100 ML BTL IV ONE (20:16)
[2018-10-30 20:27] LABS: CREATINE KINASE 4279 IU/L (0-224)
[2018-10-30] MEDS ORDERED: NS 1,900 ML IV ONE (20:57)
[2018-10-30] MEDS ORDERED: NS 1,000 ML IV ONE ×2 (20:58)
--- NOTE | 2018-10-30 21:15 | CPEKG ---
Test Reason : OPEN Blood Pressure : / mmHG Vent. Rate : 169 BPM Atrial Rate : 098 BPM P-R Int : 175 ms QRS Dur : 088 ms QT Int : 298 ms P-R-T Axes : 065 078 -63 degrees QTc Int : 500 ms Atrial fibrillation with rapid V-rate Consider left ventricular hypertrophy Repolarization abnormality, prob rate related Confirmed by Jamarcus Ochoa ([id number]) on 10/30/2018 9:15:29 PM Referred By: Jamarcus Ochoa Confirmed By:Jamarcus Ochoa
[2018-10-30] MEDS ORDERED: ACETAMINOPHEN 325 MG TAB PO PRN (21:16)
[2018-10-30] MEDS ORDERED: FLUMAZENIL 0.5 MG/5 ML MDV IVP PRN (21:21)
[2018-10-30] MEDS ORDERED: DILTIAZEM HCL/D5W 125 ML IV SCH (21:30)
[2018-10-30] MEDS ORDERED: NS 1,000 ML IV SCH (21:30)
[2018-10-30] MEDS ORDERED: TDAP ADULT 0.5 ML INJ (BOOSTRIX) IM ONE (21:31)
[2018-10-30] MEDS: PANTOPRAZOLE SODIUM 40 MG VIAL IVP SCH (21:34)
--- NOTE | 2018-10-30 21:46 | PDGENHP ---
History and Physical - Chief Complaint found down - History of Present Illness Patient is a 63-year-old male with past medical history of schizophrenia, hepatitis-C, alcohol abuse who presented the emergency room after being found down. The patient was originally brought in this morning for alcohol intoxication cleared in the emergency room and discharge. However later this evening he was found down and brought in by EMS. The patient does not remember exactly what happened. He said he drank a few beers. He does complain of pain in his left arm but does not remember exactly what happened. He is alert and oriented to person place year but he thinks it is October 27. He denied ingesting any medications or taking any illicit substances other than drinking a few beers. In the emergency room he was noted to be acidotic, in atrial fibrillation with rates up to the 160s and meeting sepsis criteria although with no obvious source. He also has a fracture of his left olecranon presumed to be secondary to his fall along with multiple abrasions on his knees and elbows. He denies any chest pain, diarrhea, dysuria, cough, fevers chills or other symptoms. History Information - Allergies/Home Medication List Allergies/Adverse Reactions: No Known Allergies Allergy (Verified 10/30/18 19:32) Home Medications: OLANZapine [ZyPREXA 2.5 mg (*)] 2.5 mg PO 01/19/16 [Last Taken Unknown] I have personally reviewed and updated: family history, medical history, social history, surgical history - Past Medical History Additional medical history: Hepatitis-C, schizophrenia, alcohol abuse - Surgical History Reports: no pertinent surgical hx - Family History Positive for: non-pertinent - Social History Smoking Status: Current every day smoker Alcohol Use: Heavy Review of Systems Review of Systems: ROS: 10pt was reviewed & negative except for what was stated in HPI & below Physical Exam Physical Exam: Temp Pulse Resp BP Pulse Ox 36.5 C 163 H 34 H 119/58 L 100 10/30/18 20:37 10/30/18 20:37 10/30/18 20:37 10/30/18 20:37 10/30/18 20:37 Constitutional: chronically ill appearing, unkempt Eyes: PERRL, anicteric sclera, EOMI Ears, Nose, Mouth, Throat: hearing normal, ears appear normal, no oral mucosal ulcers, dry mucous membranes Cardiovascular: irregularly irregular, tachycardia Respiratory: no respiratory distress, no rales or rhonchi, clear to auscultation Gastrointestinal: normoactive bowel sounds, soft, non-tender abdomen, no palpable masses Genitourinary: no bladder fullness, no bladder tenderness Skin: abrasion, other (Multiple abrasions to both knees and left arm dried blood on face) Musculoskeletal: generalized weakness Neurologic: other (Oriented to person place and year thinks it is October 26) Psychiatric: poor insight, poor judgement, poor memory Lymph, Heme, Immunologic: no cervical LAD, no supraclavicular LAD Lab Data & Imaging Review 10/30/18 19:27 10/30/18 19:27 WBC 13.86 10^3/uL (3.80-9.50) H 10/30/18 19: RBC 3.69 10^6/uL (4.40-6.38) L 10/30/18 19:27 Hgb 12.4 g/dL (13.7-17.5) L 10/30/18 19: POC Hgb 15.0 gm/dL (13.7-17.5) 10/30/18 19:37 Hct 38.1 % (40.0-51.0) L 10/30/18 19: POC Hct 44 % (40-51) 10/30/18 19:37 MCV 103.3 fL (81.5-99.8) H 10/30/18 19:27 MCH 33.6 pg (27.9-34.1) 10/30/18 19: MCHC 32.5 g/dL (32.4-36.7) 10/30/18 19: RDW 17.7 % (11.5-15.2) H 10/30/18 19:27 Plt Count 84 10^3/uL (150-400) L 10/30/18 19: MPV 10.7 fL (8.7-11.7) 10/30/18 19:27 Neut % (Auto) 80.2 % (39.3-74.2) H 10/30/18 19:27 Lymph % (Auto) 5.3 % (15.0-45.0) L 10/30/18 19:27 Real % (Auto) 12.0 % (4.5-13.0) 10/30/18 19:27 Eos % (Auto) 0.1 % (0.6-7.6) L 10/30/18 19:27 Baso % (Auto) 0.7 % (0.3-1.7) 10/30/18 19: Nucleat RBC Rel Count 0.1 % (0.0-0.2) 10/30/18 19:27 Absolute Neuts (auto) 11.12 10^3/uL (1.70-6.50) H 10/30/18 19:27 Absolute Lymphs (auto) 0.73 10^3/uL (1.00-3.00) L 10/30/18 19: Absolute Monos (auto) 1.66 10^3/uL (0.30-0.80) H 10/30/18 19:27 Absolute Eos (auto) 0.01 10^3/uL (0.03-0.40) L 10/30/18 19: Absolute Basos (auto) 0.10 10^3/uL (0.02-0.10) 10/30/18 19: Absolute Nucleated RBC 0.01 10^3/uL (0-0.01) 10/30/18 19: Immature Gran % 1.7 % (0.0-1.1) H 10/30/18 19:27 Immature Gran # 0.24 10^3/uL (0.00-0.10) H 10/30/18 19:27 RBC/WBC/PLT Morphology TNP 10/30/18 19:27 Platelet Estimate DECREASED (ADEQ) L 10/30/18 19:27 Microcytic Cells 1+ H 10/30/18 19: Oval Macrocytes 3+ H 10/30/18 19:27 PT 18.4 SEC (12.0-15.0) H 10/30/18 19:27 INR 1.61 (0.83-1.16) H 10/30/18 19:27 APTT 39.6 SEC (23.0-38.0) H 10/30/18 19:27 D-Dimer 11.45 ug/mLFEU (0.00-0.50) H 10/30/18 19:27 Puncture Site VENOUS 10/30/18 19:58 Patient Temperature 37.0 DEGREES 10/30/18 19:58 VBG pH 7.11 (7.31-7.42) L 10/30/18 19:58 VBG HCO3 8 mEQ/L (22-26) L 10/30/18 19:58 VBG Total CO2 9 mEq/L (21-27) L 10/30/18 19:58 VBG O2 Saturation 71 % (65-75) 10/30/18 19:58 VBG Base Excess -20.3 mEq/L (-2.5-2.5) L 10/30/18 19:58 VBG Lactic Acid 17.0 mmol/L (0.7-2.1) H 10/30/18 19:58 Mixed VBG pCO2 26 mmHg (40-44) L 10/30/18 19:58 Mixed VBG pO2 58 mmHG (35-40) H 10/30/18 19:58 POC Sodium 127 mEq/L (135-145) L 10/30/18 19:37 Sodium 126 mEq/L (135-145) L 10/30/18 19:27 POC Potassium 4.1 mEq/L (3.3-5.0) 10/30/18 19:37 Potassium 4.5 mEq/L (3.5-5.2) 10/30/18 19:27 POC Chloride 92 mEq/L (97-110) L 10/30/18 19:37 Chloride 90 mEq/L (97-110) L 10/30/18 19:27 Carbon Dioxide 7 mEq/l (22-31) L* 10/30/18 19:27 POC Total CO2 9 mEq/L (22-31) L* 10/30/18 19:37 Anion Gap 29 mEq/L (6-14) H 10/30/18 19:27 POC BUN 16 mg/dL (7-23) 10/30/18 19:37 BUN 15 mg/dL (7-23) 10/30/18 19:27 Creatinine 1.9 mg/dL (0.7-1.3) H 10/30/18 19:27 POC Creatinine 1.8 mg/dL (0.7-1.3) H 10/30/18 19:37 Estimated GFR 36 10/30/18 19:27 Glucose 86 mg/dL (70-100) 10/30/18 19:27 POC Glucose 88 mg/dL (70-100) 10/30/18 19:37 Serum Osmolality 351 mosmo/kg (280-297) H 10/30/18 19:27 Calcium 7.8 mg/dL (8.5-10.4) L 10/30/18 19:27 Total Bilirubin 2.9 mg/dL (0.1-1.4) H 10/30/18 19:30 Conjugated Bilirubin 1.4 mg/dL (0.0-0.5) H 10/30/18 19:30 Unconjugated Bilirubin 1.5 mg/dL (0.0-1.1) H 10/30/18 19:30 Creatine Kinase 4279 IU/L (0-224) H 10/30/18 19:27 CK-MB (CK-2) Fraction 45.00 ng/mL (0.00-4.55) H 10/30/18 19:27 CK-MB (CK-2) % 1.1 % (0.0-4.0) 10/30/18 19:27 Creatine Kinase Interp NEGATIVE (NEGATIVE) 10/30/18 19:27 POC Troponin I 0.09 ng/mL (0.00-0.08) H 10/30/18 19:36 Salicylates < 1.0 mg/dL (2.0-20.0) L 10/30/18 19:27 Ethyl Alcohol 247 mg/dL (0-10) H 10/30/18 19:27 Assessment & Plan Assessment: 63-year-old male with past medical history of schizophrenia, alcohol abuse, hepatitis-C brought in intoxicated after being found down with a left olecranon fracture and meeting sepsis criteria Hypotension- may be rate related in the setting of AFib with rates in the 160s, or hypovolemic or even infectious. Patient looks extremely dehydrated dry and has an GEOVANNA so I do think he is hypovolemic. He responded to fluids with normalization of his blood pressure. Lactate was elevated at 17. No obvious source of infection. CT head, chest, abdomen and pelvis are all in process. I reviewed the CT of his head that shows only previous encephalomalacia as well as a CT of his chest that shows no acute pulmonary embolism effusion or infiltrate. Awaiting review of CT abdomen and pelvis to determine if there is any possible fracture or infection. -consider antibiotics if patient decompensates or if CT reveals any abnormality. -continue aggressive IV fluids -if needed could start pressor support Ulnar fracture-I reviewed the x-ray that shows a complex acute at the olecranon with displaced fracture fragments. Surgeries been consulted will see the patient. Lactic acidosis-likely due to hypotension exacerbated by GEOVANNA, rhabdo, alcohol intoxication and severe dehydration. His blood pressure responded to fluid resuscitation in the emergency room. -continue aggressive fluid resuscitation -repeat lactates q.6 until under to Rhabdomyolysis- patient was found down. He was in the emergency room early this morning and so could have been down that long. He does have a fracture to his left olecranon so rhabdo may be secondary to trauma. He has good peripheral pulses however. GEOVANNA-likely prerenal azotemia in the setting of hypotension and severe dehydration. Alcohol intoxication- BAL was elevated to 247. Patient has a history heavy alcohol abuse with high likelihood of withdrawing. -[facility] protocol -multivitamin, thiamine, folic acid -p.r.n. Ativan for now Hyponatremia- likely hypovolemic hyponatremia. Will repeat metabolic panel at midnight after fluid resuscitation. Transaminitis- likely related to heavy alcohol abuse. Patient denies a history of cirrhosis. CT abdomen pending. Repeat liver function test in the morning Elevated troponin- mildly elevated troponin in the setting of AFib, hypertension with rates in the 160s suspect this is demand ischemia and does not represent ACS. Schizophrenia- patient takes and Olanzapine. Hepatitis-C- noted in his chart although patient denies history of hepatitis C. Prophylaxis- SCDs, hold heparin in the setting of complex fracture and multiple lacerations Fluids- aggressive fluid resuscitation with intravenous saline Electrolytes-hyponatremia Nutrition-NPO for now Cor-DNR Dispo-inpatient ICU I spent 50 min of critical care time in the management of this patient
--- NOTE | 2018-10-30 22:26 | GHP ---
[f rep st] HISTORY AND PHYSICAL DATE OF ADMISSION: 10/30/2018 Asked to see the patient as he was brought in as part of a limited trauma, found down on the side of a road. He apparently is homeless. Unclear if he was just sleeping on the side of the road or had a fall, but he has numerous abrasions. Altered mental status. Appears ill and again was brought in a s a limited trauma activation. While the patient was initially hypotensive, he responded to fluid. PAST MEDICAL HISTORY: Difficult to obtain, although he states he is hep C positive, treated at the [facility]. SOCIAL HISTORY: Drinks alcohol on a daily basis. LABORATORIES: Initial exams included a hematocrit of 44. Arterial blood gas was 7.17, O2 86, CO2 19 , suggestive of a significant metabolic acidosis with attempted respiratory compensation. Lactic aci d is markedly elevated at 13.4. Electrolytes include a sodium of only 127, chloride down at 92, crea tinine 1.8, elevated troponin of 0.09. The patient also was noted to be in a rapid heart rate of 150 , felt to be atrial fibrillation with a rapid rate. PHYSICAL EXAM: HEENT: Sclerae nonicteric. NECK: Nontender. He has a C-collar in place, which was eventually removed. No supraclavicular or axillary crepitus. EXTREMITIES: Scar across the right s houlder, scar across the right forearm. The right arm has full range of motion and is not painful to move. The left upper extremity is swollen at the elbow, tender consistent with olecranon fracture d ocumented on plain films. There is also on plain films an old subcapital humeral head fracture. BAILEY GS: Clear. HEART: Tachycardic. No murmurs. ABDOMEN: Soft, benign. Palpable hernia defect to th e right of the midline which has varicosity present in the hernia sac consistent with his portal hype rtension and varices. ABDOMEN: Soft and benign otherwise. Pelvis stable to compression. Ribs stab le to compression. LOWER EXTREMITIES: Discoloration across both knees consistent with multiple fall s or other injury, but they do not appear to be infected. Full range of motion of the lower extremit ies. NEUROLOGICALLY: Intact. IMAGING: The patient underwent a chest x-ray showing old left rib fractures and the humeral head fra cture. Left arm films which show the olecranon fracture. CT of the head, chest, abdomen, pelvis. CT chest shows some bullous disease but no acute injuries. Abdomen shows fluid all around the liver and spleen as well as some free fluid in the pelvis, portal hypertensive varices. The radiologist feels this is ascites and not blood. No obvious injuries seen in the abdomen. Pelvis stable. Lumbar spine reconstruction shows no fractures. ASSESSMENT: Alcoholic, possibly homeless male found down in a rapid heart rate, atrial fibrillation, hypotensive, acidotic with olecranon fracture likely from his recent falls. The only actual traumat ic injury besides the knee abrasions is the olecranon fracture. RECOMMENDATIONS: Admit to Medicine for orthopedic consultation. A splint has been placed on the lef t elbow. I do not think the Trauma Service has much to add other than his medical needs, which will be dealt with by the hospitalist and his olecranon fracture to be dealt with by Orthopedic Surgery. /[id number]/MODL
[2018-10-30] MEDS: LORazepam 2 MG/ML INJ IVP PRN (23:05)
[2018-10-30] MEDS: THIAMINE HCL 500 MG in NS 100 ML IV SCH (23:31)
[2018-10-31] MEDS: LORazepam 2 MG/ML INJ IVP PRN ×6 (00:15→13:13)
--- NOTE | 2018-10-31 01:46 | GCON ---
[f rep st] CONSULTATION DATE: 10/30/18 REASON FOR CONSULTATION: Left elbow injury. HISTORY OF PRESENT ILLNESS: The patient is a 63-year-old [id number] man who presented to the emergency room after a fall of unknown etiology. He was noted to have left elbow swelling. Upon further workup, he was found to have a lateral condyle humerus fracture. EXAMINATION: The patient is able to answer questions but is somewhat somnolent. He has swelling diffusely in his elbow with tenderness over his lateral elbow. His distal neurovascular exam is grossly intact. IMAGING: AP and lateral radiographs of his elbow show evidence of a lateral condyle fracture. ASSESSMENT: Left humerus lateral condyle fracture. PLAN: After discussion with the patient regarding treatment options, he stated , "Leave it how it is. I don't want surgery." Based on this, further radiographic evaluation, such as a CAT scan, which would have been considered, was not performed. He will be placed in a splint. /[id number]/MODL MTDD
[2018-10-31] MEDS: D50W 25 GM/50 ML SYR IVP PRN ×2 (01:51→06:30)
[2018-10-31] MEDS ORDERED: AMIODARONE HCL 200 ML IV ONE (03:17)
[2018-10-31] MEDS ORDERED: AMIODARONE HCL 100 ML IV ONE (03:17)
[2018-10-31 05:12] LABS: PLATELET COUNT 69 10^3/uL (150-400)
--- NOTE | 2018-10-31 08:17 | PDMN ---
Medical Necessity Medical necessity: [facility] M160 sepsis and other febrile illness A-3 days: Admission is indicated for 1 or more of the following. Hemodynamic instability , Other condition, treatment, or monitoring requiring inpatient admission. pt is 63 yo M found down. found to be acidotic, in afib rates up to 160, fx of olecranon, hypotensive, hyponatremia, transaminitis, elevated trop, rhabdomyolysis, GEOVANNA, EOTH intoxication,. PMHX: schizophrenia, hep C, ETOH abuse, anticipate > 2 MN ongoing med nec care.
[2018-10-31] MEDS: THIAMINE HCL 500 MG in NS 100 ML IV SCH (09:17)
[2018-10-31] MEDS: PANTOPRAZOLE SODIUM 40 MG VIAL IVP SCH ×2 (09:17→21:28)
[2018-10-31] MEDS ORDERED: DIGOXIN 500 MCG/2 ML AMP IVP ONE (09:34)
[2018-10-31] MEDS: AMIODARONE HCL 200 ML IV SCH ×3 (09:48→22:01)
--- NOTE | 2018-10-31 09:53 | HOSPPROG ---
Hospitalist Progress Note Assessment/Plan: DIAGNOSES: * Acute hypotension uncertain etiology * Severe metabolic lactic acidosis * Acute encephalopathy, metabolic, severe, due to above as well as alcohol * Acute renal failure, likely hemodynamic etiology but other factors possible * Acute alcohol intoxication * High risk of alcohol withdrawal, suspected thiamine deficiency * Acute alcoholic hepatitis * Rapid atrial fibrillation not responding to diltiazem * Elevated cardiac troponins, with very low suspicion at this time of acute coronary syndrome as cause * Left elbow fracture * COPD with some wheezing and hypoxemia now, uncertain what his baseline respirations like * Cirrhosis with small amount of ascites present at this time * Macrocytic anemia and thrombocytopenia alcoholism * Alcoholism * Schizophrenia * History in the past abuse of methamphetamine, unclear if he is using that now * History of ileus psoas abscess PLANS: * Recheck ABG now and follow as a based as closely * He will need to be fed to avoid addition of starvation ketosis but high aspiration risk; speech language evaluation this morning and if he is not safely swallow will place an NG tube * Continue hydration * IV thiamine * CIWA monitoring and treatment is indicated * DVT prophylaxis with caution due to thrombocytopenia * Continue amiodarone and diltiazem at this time will give some digoxin; * Echocardiogram * Continue his usual medicines for schizophrenia * Bronchodilators, consider steroid for breathing if necessary SUBJECTIVE: Patient does respond to conversation but his speech is unintelligible due to his encephalopathy and edentulous state that he seems to be telling me that he feels okay OBJECTIVE Vitals reviewed: Blood pressure now improved but remains with very rapid AFib in the 140s despite diltiazem, no fever, respiratory rate remains quite rapid [employer], my review: Rapid AFib Exam: Awake, appears probably disoriented but hard to assess as his speech is unintelligible, does follow some commands Abrasions on forehead and knees as well as evidence of erythema from pressure on the extensor aspects of both knees but no signs of skin infection Left elbow in brace skin warm dry resps not labored lungs diminished breath sounds with some wheeze heart rapid and irregular abd soft nondistended nontender, bowel sounds present; uncomplicated periumbilical hernia limbs warm, no edema iv site ok Lab data: CO2 on chemistry remains low at 9 Creatinine stable at 1.4 Electrolytes okay Hemoglobin at 9.7, macrocytic and this is probably his baseline, it is where he was in 2016 Platelets decreased 69 WBC better but remains elevated at 10,000 thousand I reviewed images of CT scan chest which shows COPD with some subpleural blebs but no infiltrates heart failure or PE I reviewed images CT scan of the abdomen which show a cirrhotic liver, small amount of ascites, diffuse atherosclerosis, and evidence of osteoporosis with old appearing compression fractures of spine; there is a bit of edema around the head of pancreas which could be either pancreatitis or related to portal hypertension; his gallbladder is distended stones are not identified Objective: Vital Signs Temp Pulse Resp BP Pulse Ox 37.1 C 137 H 29 H 102/55 L 98 10/31/18 08:00 10/31/18 09:00 10/31/18 09:00 10/31/18 09:00 10/31/18 09:00 Laboratory Results 10/31/18 05:00 10/31/18 05:00 10/30/18 10/31/18 11/01/18 06:59 06:59 06:59 Intake Total 5208 Output Total 1310 Balance 3898 PT 18.4 SEC (12.0-15.0) H 10/30/18 19:27 INR 1.61 (0.83-1.16) H 10/30/18 19:27 - Time Spent With Patient Time Spent with Patient: greater than 35 minutes Time Spent with Patient: Greater than 35 minutes spent on this patients care, greater than 50% of time spent counseling, educating, and coordinating care regarding the above mentioned plan. ICD10 Worksheet Patient Problems: Problems Problem Status Onset Alcoholic intoxication Acute Atrial fibrillation Acute Elevated troponin Acute Olecranon fracture Acute Rhabdomyolysis Acute Severe sepsis Acute Alcohol abuse Acute Leg pain, medial Acute Pain in superior right lower extremity Acute
[2018-10-31] MEDS ORDERED: AMIODARONE HCL 540 MG in D5W 300 ML IV ONE (10:00)
[2018-10-31] MEDS: NICOTINE 21 MG/24 HR PATCH TD SCH (11:33)
[2018-10-31] MEDS: FAMOTIDINE 20 MG TAB PO SCH ×2 (11:39→21:13)
[2018-10-31] MEDS: ENOXAPARIN 40 MG/0.4 ML SYR SC SCH (11:39)
[2018-10-31] MEDS: OLANZapine 10 MG TAB PO SCH (11:41)
[2018-10-31] MEDS ORDERED: LORazepam 2 MG/ML INJ IVP SCH (12:00)
[2018-10-31] MEDS: DEXMEDETOMIDINE HCL 400 MCG in NS 100 ML IV SCH (14:12)
--- NOTE | 2018-10-31 15:47 | GCON ---
[f rep st] CONSULTATION CRITICAL CARE CONSULTATION DATE OF CONSULTATION: 10/31/2018 HPI: This patient is a 63-year-old male with chronic alcoholism, who was found down, but conscious. He had been seen in the emergency department yesterday afternoon with alcohol intoxication but was d ischarged. He was found to be in atrial fibrillation with rapid ventricular response as well as a le ft olecranon fracture. His review of systems was otherwise negative, as far as I know, though he did not endorse any shortness of breath, cough, sputum production, chest pain, or abdominal pain. His t hinking process was somewhat disjointed and difficult to obtain history. PAST MEDICAL HISTORY: Includes schizophrenia, multiple falls, alcoholism, right arm fracture in the past, and hepatitis C. SOCIAL HISTORY: He is an ongoing smoker, as well as alcohol. I am not aware of other drugs. FAMILY HISTORY: Noncontributory. PAST SURGICAL HISTORY: His surgeries are unknown. MEDICATIONS: At this time include Tylenol, amiodarone, Precedex, diltiazem, Lovenox, Pepcid, Ativan, CIWA protocol, Protonix, thiamine. PHYSICAL EXAM: VITAL SIGNS: At the time of my evaluation, his blood pressure was 110/65, heart rate 105, respirations 20, oxygen saturation 97% on 3 L. GENERAL APPEARANCE: He was a very disheveled p erson in no apparent distress, lying in bed, though he was agitated, moving around quite a bit. HEEN T: He had multiple areas of discoloration of his skin, but his pupils were equally round and reactiv e to light. Nonicteric and noninjected. Mucous membranes were moist without erythema or exudate. N SOLO: Supple without adenopathy or jugular vein distention. HEART: Had an irregularly irregular rhy thm without obvious murmur. LUNGS: Breath sounds were clear to auscultation bilaterally without whe ezes, rubs, or rales. ABDOMEN: Soft, nontender, nondistended without hepatosplenomegaly. EXTREMITI ES: No clubbing, cyanosis, or edema. His left arm was extensively wrapped in a splint in an immobil izer, but no evidence of bleeding and good capillary refill. OBJECTIVE DATA: Includes multiple CT scans including the head, chest, abdomen, and extremities, the extremity CT revealing the fracture, the other ones being fairly unremarkable. His white count on ar rival was 13.8 and dropped to 9.9 without antibiotics. He came in with a blood gas showing a pH 7.17 , pCO2 of 19, pO2 of 86, bicarb was 7, a sat of 91. His glucose of 1-point was 49. He was treated w ith D5 for that, but his creatinine was 1.4. In addition, liver function tests revealed an AST of 41 8, an ALT of 111, with a normal alkaline phosphatase, total bilirubin 4.3, CK of 4279. Troponin 0.08 1. An unremarkable UA. An alcohol level of 247. Blood cultures were drawn and are pending at this time, and a lactate started at 17 is down to 11.5, and platelets of 84. ASSESSMENT/PLAN: 1. This patient had hypotension with an elevated lactate level, possibly related to some dehydration and/or his atrial fibrillation. There is no obvious septic shock or acute coronary syndrome. His l actate is getting better with IV fluids. He has never required pressors. Blood cultures have been d tad and those are pending at this time. In addition, I think that his minor troponin leak as well a s bump in his LFTs are probably related to that as well. We will continue to follow this for now. 2. Atrial fibrillation. His rate is controlled at this time with the diltiazem and subsequent amiod arone. It is unclear to me if this is a chronic or acute problem for him. An echocardiogram might b e a good idea, but he seems to be rate controlled at this point. 3. Acute kidney injury. This is of likely dehydration and we will follow his creatinine. He seems to be putting adequate urine at this time. 4. Multiple electrolyte abnormalities including sodium 131, and his glucose, 49. This could be rela omar to underlying liver disease. He responded well to his D50. We will continue with his fluids and monitor closely. 5. Alcoholism, and he is on the CIWA protocol right now with Precedex and Ativan. That is probably why his platelets are low. 6. Rhabdomyolysis. We will have to continue to follow this. I do not think that is contributing to his renal failure. A total of about 65 minutes of critical care time was required for this patient. /[id number]/MODL
--- NOTE | 2018-10-31 15:52 | ASMTCASEMG ---
Living Arrangements What is your living Answers: Alone arrangement? Who do you live with? Type Of Residence What kind of residence do Answers: Homeless you live in? Type of Residence Facility Name Notes: Patient lists an address that is [employer] [facility] housing. It is unclear if he lives there or he is homeless. Discharge Plan Comments Coordination Status Comments Notes: Patient is a 63yo single male with a past medical hx of schizophrenia, ETOH abuse, hep-C who was brought in intoxicated after being found down with a left olecranon fracture and meeting sepsis criteria. Patient is being admitted for hypotension, ulnar fracture, lactic acidosis, rhabdomyolysis, GEOVANNA, ETOH intoxication,hyponatremia, transaminitis, elevated troponin, schizophrenia, Hep C. 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 D/C plan TBD. CM will follow. Date Signed: 10/31/2018 03:51 PM Electronically Signed By:Kate Engle LCSW
[2018-10-31] MEDS: LORazepam 2 MG/ML INJ IVP SCH (18:18)
[2018-11-01] MEDS: LORazepam 2 MG/ML INJ IVP SCH ×5 (00:06→23:42)
[2018-11-01] MEDS: AMIODARONE HCL 200 ML IV SCH ×3 (03:23→20:45)
[2018-11-01 04:35] LABS: PLATELET COUNT 30 10^3/uL (150-400)
[2018-11-01] MEDS: FAMOTIDINE 20 MG TAB PO SCH (10:01)
[2018-11-01] MEDS: OLANZapine 10 MG TAB PO SCH (10:01)
[2018-11-01] MEDS: THIAMINE HCL 500 MG in NS 100 ML IV SCH (10:02)
[2018-11-01] MEDS: NICOTINE 21 MG/24 HR PATCH TD SCH (10:02)
[2018-11-01] MEDS: ENOXAPARIN 40 MG/0.4 ML SYR SC SCH (10:02)
[2018-11-01] MEDS: SODIUM BICARBONATE 150 MEQ in D5W 1,000 ML IV SCH (11:30)
--- NOTE | 2018-11-01 11:32 | PDINTPN ---
Pharmacy Intern Progress Note Assessment/Plan: 63 M with schizophrenia and etoh admitted 10/30 after found down without LOC. He had been seen in the ED earlier the same day and now had an olecranon fracture and rapid atrial fibrillation, multiple metabolic abnormalities, and hypotension with an elevated lactate. He was treated with diltiazem then amiodarone, as well as IVF with resolution of his BP. * Hypotension likely combination of factors as listed. Never needed pressors. No cler evidence of ACS, sepsis, adrenal insufficiency * afib- now in NSR; decrease amiodarone to 0.5 for now and may change to po tomorrow * julio cesar- resolved with IVF * lft- increasing today; probably shock liver mediated. Continue to follow. * glucose- not clear why he dropped initially but normalized now. * rhabdo- last checked 10/30 at 4279. rechack in am * etoh- stable om precedex and scheduled ativan * NGMAC- likely from volume resuscitation. Change NS to hco3 drip for now; and likely dc in am. * Olecranon fracture- splinted by ortho; no planned surgery 11/01/18 11:32 Subjective: continues with symptoms of etoh wd Objective: Vital Signs Temp Pulse Resp BP Pulse Ox 36.9 C 82 34 H 110/56 L 99 11/01/18 06:00 11/01/18 10:00 11/01/18 10:00 11/01/18 10:00 11/01/18 10:00 Laboratory Results 11/01/18 04:00 11/01/18 04:00 10/31/18 11/01/18 11/02/18 05:59 05:59 05:59 Intake Total 5208 1965 Output Total 1310 900 Balance 3898 1065 PT 18.4 SEC (12.0-15.0) H 10/30/18 19:27 INR 1.61 (0.83-1.16) H 10/30/18 19:27 Physical Exam - Physical Exam General Appearance: no apparent distress, obtunded (moderately), thin, other EENT: PERRL/EOMI, No scleral icterus (R), No scleral icterus (L) Neck: supple Respiratory: lungs clear, normal breath sounds, decreased breath sounds, No respiratory distress, No accessory muscle use Cardiac/Chest: irregularly irregular, No edema, No JVD Abdomen: non-tender, soft, No distended Skin: warm/dry, other (multiple areas of erythema on bilateral LE), No cyanosis , No jaundice Lymphatic: no adenopathy Extremities: No pedal edema Neuro/Psych: cognition abnormalities, 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
--- NOTE | 2018-11-01 15:57 | HOSPPROG ---
Hospitalist Progress Note Assessment/Plan: DIAGNOSES: * Acute hypotension uncertain etiology, may be multifactorial * acute thrombocytopenia: uncertain etiology but worsening and moderately severe * Severe metabolic lactic acidosis improving * Acute encephalopathy, metabolic, severe, due to above as well as alcohol * Acute renal failure, likely hemodynamic etiology but other factors possible * Acute alcohol intoxication * Acute alcohol withdrawalrequiring ongoing sedation, * suspected thiamine deficiency * Acute alcoholic hepatitis * Rapid atrial fibrillation not responding to diltiazem; now in sinus on amiodarone drip * Elevated cardiac troponins, with very low suspicion at this time of acute coronary syndrome as cause * Left elbow fracture, epicondylar; nonoperative management * COPD with some wheezing and hypoxemia, uncertain what his baseline respirations like * Cirrhosis with small amount of ascites present * Macrocytic anemia and thrombocytopenia alcoholism * Alcoholism * Schizophrenia * History in the past abuse of methamphetamine, unclear if he is using that now * History of ileus psoas abscess Seen by me on hospitalist rounds and multidisciplinary rounds Reviewed with Dr. 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, 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: now in sinus on amiodarone Exam: stuporous, on IV sedation Abrasions on forehead and knees all look ok Left elbow in brace skin warm dry resps not labored lungs diminished breath sounds heart rapid and irregular abd soft nondistended nontender, bowel sounds present; uncomplicated periumbilical hernia limbs warm, no edema iv site ok Lab data: Acid-base normalized Stable renal function and electrolytes Platelets have now dropped to 30,000 I reviewed images of CT scan chest which shows COPD with some subpleural blebs but no infiltrates heart failure or PE I reviewed images CT scan of the abdomen which show a cirrhotic liver, small amount of ascites, diffuse atherosclerosis, and evidence of osteoporosis with old appearing compression fractures of spine; there is a bit of edema around the head of pancreas which could be either pancreatitis or related to portal hypertension; his gallbladder is distended stones are not identified Objective: Vital Signs Temp Pulse Resp BP Pulse Ox 37.1 C 73 29 H 95/54 L 96 11/01/18 12:33 11/01/18 14:00 11/01/18 14:00 11/01/18 14:00 11/01/18 14:00 Laboratory Results 11/01/18 04:00 11/01/18 04:00 10/31/18 11/01/18 11/02/18 06:59 06:59 06:59 Intake Total 5208 1965 Output Total 1310 900 Balance 3898 1065 PT 18.4 SEC (12.0-15.0) H 10/30/18 19:27 INR 1.61 (0.83-1.16) H 10/30/18 19:27 - Time Spent With Patient Time Spent with Patient: greater than 35 minutes Time Spent with Patient: Greater than 35 minutes spent on this patients care, greater than 50% of time spent counseling, educating, and coordinating care regarding the above mentioned plan. ICD10 Worksheet Patient Problems: Problems Problem Status Onset Alcoholic intoxication Acute Atrial fibrillation Acute Elevated troponin Acute Olecranon fracture Acute Rhabdomyolysis Acute Severe sepsis Acute Alcohol abuse Acute Leg pain, medial Acute Pain in superior right lower extremity Acute
[2018-11-01] MEDS: DEXMEDETOMIDINE HCL 400 MCG in NS 100 ML IV SCH (21:00)
[2018-11-01] MEDS ORDERED: LORazepam 2 MG/ML INJ IVP SCH (21:00)
[2018-11-02] MEDS: LORazepam 2 MG/ML INJ IVP SCH ×6 (00:13→18:22)
[2018-11-02] MEDS: SODIUM BICARBONATE 150 MEQ in D5W 1,000 ML IV SCH (04:30)
[2018-11-02 05:50] LABS: CREATINE KINASE > 1600 IU/L (0-224)
[2018-11-02] MEDS: AMIODARONE HCL 200 ML IV SCH (06:01)
[2018-11-02] MEDS ORDERED: ORAL BALANCE GEL TUBE PO PRN (06:04)
[2018-11-02] MEDS: LORazepam 2 MG/ML INJ IVP PRN (08:00)
[2018-11-02] MEDS: FAMOTIDINE 20 MG TAB PO SCH (08:08)
[2018-11-02] MEDS: THIAMINE HCL 100 MG TAB PO SCH (08:08)
[2018-11-02] MEDS: OLANZapine 10 MG TAB PO SCH (08:09)
[2018-11-02 09:23] LABS: PLATELET COUNT 35 10^3/uL (150-400)
[2018-11-02] MEDS: DEXMEDETOMIDINE HCL 400 MCG in NS 100 ML IV SCH (09:27)
[2018-11-02] MEDS: NICOTINE 21 MG/24 HR PATCH TD SCH (10:18)
--- NOTE | 2018-11-02 10:38 | CPEKG ---
Test Reason : OPEN Blood Pressure : / mmHG Vent. Rate : 141 BPM Atrial Rate : 140 BPM P-R Int : 161 ms QRS Dur : 083 ms QT Int : 352 ms P-R-T Axes : 107 082 -73 degrees QTc Int : 539 ms Sinus tachycardia Sinus pause Borderline right axis deviation Prolonged QT interval Confirmed by Reagan Bronson ([id number]) on 11/02/2018 10:37:57 AM Referred By: Manuel Biggs Confirmed By:Reagan Bronson
[2018-11-02] MEDS: AMIODARONE HCL 200 MG TAB PO SCH (11:59)
--- NOTE | 2018-11-02 13:09 | HOSPPROG ---
Hospitalist Progress Note Assessment/Plan: DIAGNOSES: * Acute hypotension uncertain etiology, may be multifactorial, better but still tachycardic * hypoxemic resp failure * Severe metabolic lactic acidosis improving * Acute encephalopathy, metabolic, severe, due to above as well as alcohol * Acute renal failure, likely hemodynamic etiology but rhabdomyolysis may be causative as well * Rhabdomyolysis, due to injury and time on ground * Acute alcohol intoxication * Acute alcohol withdrawal requiring ongoing sedation, * acute thrombocytopenia: uncertain etiology but worsening and moderately severe * suspected thiamine deficiency * Acute alcoholic hepatitis * Rapid atrial fibrillation not responding to diltiazem; now in sinus on amiodarone drip * Elevated cardiac troponins, with very low suspicion at this time of acute coronary syndrome as cause * Left elbow fracture, epicondylar; nonoperative management * COPD with some wheezing and hypoxemia, uncertain what his baseline respirations like * Cirrhosis with small amount of ascites present * Macrocytic anemia and thrombocytopenia alcoholism * Alcoholism * Schizophrenia * History in the past abuse of methamphetamine, unclear if he is using that now * History of ileus psoas abscess Seen by me on hospitalist rounds and multidisciplinary rounds Reviewed with Dr. 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, 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: now in sinus on amiodarone Exam: stuporous, on IV sedation Abrasions on forehead and knees all look ok Left elbow in brace skin warm dry resps not labored lungs diminished breath sounds heart rapid and irregular abd soft nondistended nontender, bowel sounds present; uncomplicated periumbilical hernia limbs warm, no edema iv site ok Lab data: co2 no up to 28 renal fxn good, lytes ok cpk down to 1600 anemia stable still with low plts 35k Objective: Vital Signs Temp Pulse Resp BP Pulse Ox 36.6 C 91 35 H 104/60 97 11/02/18 10:00 11/02/18 12:00 11/02/18 12:00 11/02/18 12:00 11/02/18 12:00 Laboratory Results 11/02/18 05:29 11/02/18 05:29 11/01/18 11/02/18 11/03/18 06:59 06:59 06:59 Intake Total 1965 2607 Output Total 900 750 Balance 1065 1857 PT 18.4 SEC (12.0-15.0) H 10/30/18 19:27 INR 1.61 (0.83-1.16) H 10/30/18 19:27 - Time Spent With Patient Time Spent with Patient: greater than 35 minutes Time Spent with Patient: Greater than 35 minutes spent on this patients care, greater than 50% of time spent counseling, educating, and coordinating care regarding the above mentioned plan. ICD10 Worksheet Patient Problems: Problems Problem Status Onset Alcoholic intoxication Acute Atrial fibrillation Acute Elevated troponin Acute Olecranon fracture Acute Rhabdomyolysis Acute Severe sepsis Acute Alcohol abuse Acute Leg pain, medial Acute Pain in superior right lower extremity Acute
--- NOTE | 2018-11-02 15:17 | PDINTPN ---
On [facility] Progress Note Assessment/Plan: Assessment: 63 M with schizophrenia and etoh admitted 10/30 after found down without LOC. He had been seen in the ED earlier the same day and now had an olecranon fracture and rapid atrial fibrillation, multiple metabolic abnormalities, and hypotension with an elevated lactate. He was treated with diltiazem then amiodarone, as well as IVF with resolution of his BP. * Hypotension likely combination of factors as listed. Never needed pressors. No clear evidence of ACS, sepsis, adrenal insufficiency * afib- now in NSR; Changed to PO amiodarone today * julio cesar- resolved with IVF * lft- Probably shock liver mediated. Continue to follow. * glucose- not clear why he dropped initially but normalized now. * rhabdo- Remains elevated. Renal function good. * EtOH- stable on Precedex and scheduled Ativan * NGMAC- Resolved with NaHCO3 * Olecranon fracture- splinted by ortho; no planned surgery Plan: Reduce scheduled Ativan. Stop NaHCO3. Continue to try to stop Precedex during the day as tolerated. Keep in ICU for now. 11/02/18 15:40 Subjective: Somnolent/sedated, agitated with decreased sedation Objective: Vital Signs Temp Pulse Resp BP Pulse Ox 36.6 C 91 35 H 104/60 97 11/02/18 10:00 11/02/18 12:00 11/02/18 12:00 11/02/18 12:00 11/02/18 12:00 Laboratory Results 11/02/18 05:29 11/02/18 05:29 11/01/18 11/02/18 11/03/18 05:59 05:59 05:59 Intake Total 1965 2607 Output Total 900 750 Balance 1065 1857 PT 18.4 SEC (12.0-15.0) H 10/30/18 19:27 INR 1.61 (0.83-1.16) H 10/30/18 19:27 Laboratory Tests 11/02/18 05:29 Creatine Kinase > 1600 H Physical Exam - Physical Exam General Appearance: No alert EENT: normal ENT inspection Neck: normal inspection Respiratory: wheezing Cardiac/Chest: regular rate, rhythm, No edema Abdomen: normal bowel sounds, non-tender Skin: normal color, warm/dry Extremities: normal inspection Neuro/Psych: No alert, No motor weakness ICD10 Worksheet Patient Problems: Problems Problem Status Onset Alcoholic intoxication Acute Atrial fibrillation Acute Elevated troponin Acute Olecranon fracture Acute Rhabdomyolysis Acute Severe sepsis Acute Alcohol abuse Acute Leg pain, medial Acute Pain in superior right lower extremity Acute
--- NOTE | 2018-11-02 15:29 | ASMTCMCOM ---
CM Note CM Note Notes: CM spoke with [facility] services who report pt was last seen at the [facility] in [place] on October 30 for a broken arm and head injury ([phone]). Next of kin contact is pt's sister, Janis Zaragoza ([phone]). CM made multiple attempts at contacting her and left message requesting call back. RN notified. At this time, PT/OT recommending SNF. Pt unable to engage in coversation about discharge planning. CM to follow. Date Signed: 11/02/2018 03:28 PM Electronically Signed By:RAPHAEL Sun
[2018-11-02] MEDS: LR 1,000 ML IV SCH (16:07)
--- NOTE | 2018-11-02 16:47 | ASMTCMCOM ---
CM Note CM Note Notes: Spoke with Dr. Koch who reports pt is not decisional. Pt's sister called CM back and is willing to be health Care proxy and reports she is his legal conservator but is not a guardian. She reports she is pt's only support and does not have others in the area. CM informed her I contacted [facility] and they had no advanced directives on file. She reports pt and her were suppose to have lunch today and he did not show up so she was appreciative of the call because she didn't know where he was. She is coming into see pt today to sign Health Care Proxy form. RN notified and will get signature from Janis Zaragoza ([phone]). Date Signed: 11/02/2018 04:46 PM Electronically Signed By:RAPHAEL Sun
[2018-11-02] MEDS: IPRATROPIUM/ALBUTEROL 3 ML DEYVIAL IH SCH ×2 (17:12→21:48)
--- NOTE | 2018-11-02 17:19 | WOCRNPDOC ---
WOCRElvia Advanced Assessment Note - Skin Integrity Problem, Advanced Assess Left Arm Abrasion Dressing Type: Dwayne Bandage, Gauze, Kerlix, Xeroform, Other Other Dressing Type: splint Dressing Description: Intact, Saturated Exudate Amount: Moderate Exudate Color: Red Exudate Characteristic(s): Serosanguinous Integumentary Issue Intervention: Dressing Changed Tia Wound Tissue: Ecchymotic, Swollen Tia Wound Swelling: Moderate Wound Bed Color: Pender Wound Bed Constitution: Red/Pender - Non Granular Tissue Skin Integrity Problem Comment: Multiple abrasions to lateral aspect of left proximal forearm largest approximately 1x1 cm. Oozing moderately. Small pieces of Thrombix Silver cut and placed over wounds. Covered with ABD, secured with kerlix and wrapped with Dwayne wrap. Lien SWANN and Luiz HEATH in room for care. Wound care also consulted for Bilateral knee and bilateral hip bruising. All assessed with no pressure injuries found.
[2018-11-03] MEDS: LORazepam 2 MG/ML INJ IVP SCH ×2 (00:32→05:30)
[2018-11-03] MEDS: DEXMEDETOMIDINE HCL 400 MCG in NS 100 ML IV SCH (04:42)
[2018-11-03] MEDS: LR 1,000 ML IV SCH ×2 (04:42→17:35)
[2018-11-03] MEDS: IPRATROPIUM/ALBUTEROL 3 ML DEYVIAL IH SCH ×3 (05:08→17:51)
[2018-11-03] MEDS: AMIODARONE HCL 200 MG TAB PO SCH (08:39)
[2018-11-03] MEDS: OLANZapine 10 MG TAB PO SCH (08:39)
[2018-11-03] MEDS: FAMOTIDINE 20 MG TAB PO SCH (08:39)
[2018-11-03] MEDS: THIAMINE HCL 100 MG TAB PO SCH (08:39)
[2018-11-03] MEDS: NICOTINE 21 MG/24 HR PATCH TD SCH (08:39)
[2018-11-03 11:21] LABS: CREATINE KINASE 2700 IU/L (0-224)
[2018-11-03 11:35] LABS: PLATELET COUNT 32 10^3/uL (150-400)
--- NOTE | 2018-11-03 11:46 | PDINTPN ---
Connie Scratcher Progress Note Assessment/Plan: Assessment: 63 M with schizophrenia and etoh admitted 10/30 after found down without LOC. He had been seen in the ED earlier the same day and now had an olecranon fracture and rapid atrial fibrillation, multiple metabolic abnormalities, and hypotension with an elevated lactate. He was treated with diltiazem then amiodarone, as well as IVF with resolution of his BP. * Hypotension likely combination of factors as listed. Never needed pressors. No clear evidence of ACS, sepsis, adrenal insufficiency * afib- now in NSR; Changed to PO amiodarone 11/02 * julio cesar- resolved with IVF * lft- Probably shock liver mediated. Continue to follow. * glucose- not clear why he dropped initially but normalized now. * rhabdo- Remains elevated, but trending down. Renal function good * EtOH- * NGMAC- Resolved with NaHCO3 * Olecranon fracture- splinted by ortho; no planned surgery * Thrombocytopenia. Platelet count remains in the 30s. May be due to chronic alcohol use. No signs of significant active bleeding, although his hemoglobin is trending down a bit. Plan: Stop scheduled Ativan. Will give Lasix now and again in the morning, as he is about 11 L up in fluid balance this hospitalization. Probably can transfer to [facility] floor or tele. Follow CBC and CPK Discussed with case management and the patient's sister, who is been involved in helping him throughout much of his life with prior psychiatric problems and intermittent substance abuse issues. It may be best to have him go to the SNF for a while, then see if he can get some more assistance once he is discharged to his apartment. 11/03/18 11:50 Subjective: Minimally responsive. Follows some simple commands. Objective: Vital Signs Temp Pulse Resp BP Pulse Ox 36.9 C 92 72 H 121/65 H 90 L 11/03/18 04:00 11/03/18 11:00 11/03/18 11:00 11/03/18 11:00 11/03/18 11:00 Laboratory Results 11/03/18 10:40 11/03/18 10:40 11/02/18 11/03/18 11/04/18 05:59 05:59 05:59 Intake Total 2607 2715.3 Output Total 750 450 Balance 1857 2265.3 PT 18.4 SEC (12.0-15.0) H 05/03/19 19:27 INR 1.61 (0.83-1.16) H 10/30/18 19:27 Chest x-ray: New hypoventilation. Images reviewed by me. Physical Exam - Physical Exam General Appearance: no apparent distress, No alert (Somnolent but arousable) EENT: normal ENT inspection Neck: normal inspection Respiratory: lungs clear, normal breath sounds Cardiac/Chest: regular rate, rhythm, edema (Trace) Abdomen: normal bowel sounds, non-tender, soft Skin: normal color, warm/dry Extremities: other (Left upper extremity bandaged, with 2+ edema in the hand) Neuro/Psych: No alert, No oriented x 3 ICD10 Worksheet Patient Problems: Problems Problem Status Onset Alcoholic intoxication Acute Atrial fibrillation Acute Elevated troponin Acute Olecranon fracture Acute Rhabdomyolysis Acute Severe sepsis Acute Alcohol abuse Acute Leg pain, medial Acute Pain in superior right lower extremity Acute
[2018-11-03] MEDS ORDERED: FUROSEMIDE 20 MG/2 ML VIAL IVP ONE (11:48)
--- NOTE | 2018-11-03 12:45 | ASMTCMCOM ---
CM Note CM Note Notes: Family meeting was held today with pt's sister, Janis (current health care proxy), Spiritual care, web content manager, PHYLLIS, and Dr. Aguirre. Janis spent a long time explaining pt's medical and psychiatric history, including being diagnosed with paranoid schizophrenia when he was 18 in the [employer]. She has been assigned as his legal conservator to help with finances since the late 80's. Her mom was supportive of Karan until she passed and then took over care. Per Janis, [facility] in [place] every 3 months. Janis limits pt's money as best as she can to ensure he buys food instead of alcohol but knows that he still gets alcohol and drinks a ton. Janis feels since july he has been drinking more and declining medically and is hopeful that after this hospitalization he would benefit from SNF stay as when he had shoulder surgery in the past he did well at a rehab. Janis did confirm the address on file as his apartment. [place] [address] [place]. CM [facility] for [facility] and collaborate with Janis. Plan: SNF Date Signed: 11/03/2018 12:43 PM Electronically Signed By:RAPHAEL Sun
[2018-11-03] MEDS: LORazepam 2 MG/ML INJ IVP PRN ×4 (14:55→20:57)
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
[2018-11-04] MEDS ORDERED: LORazepam 1 MG TAB PO SCH (00:30)
[2018-11-04] MEDS: IPRATROPIUM/ALBUTEROL 3 ML DEYVIAL IH SCH ×4 (01:44→15:52)
[2018-11-04] MEDS: chlordiazePOXIDE 25 MG CAP PO SCH ×2 (02:02→08:41)
[2018-11-04] MEDS: LORazepam 2 MG/ML INJ IVP PRN ×4 (02:02→20:33)
[2018-11-04 06:01] LABS: PLATELET COUNT 44 10^3/uL (150-400)
[2018-11-04] MEDS: OLANZapine 10 MG TAB PO SCH (08:41)
[2018-11-04] MEDS: AMIODARONE HCL 200 MG TAB PO SCH (08:45)
[2018-11-04] MEDS: FAMOTIDINE 20 MG TAB PO SCH (08:47)
[2018-11-04] MEDS: THIAMINE HCL 100 MG TAB PO SCH (08:48)
[2018-11-04] MEDS: NICOTINE 21 MG/24 HR PATCH TD SCH (08:50)
[2018-11-04] MEDS ORDERED: FUROSEMIDE 20 MG/2 ML VIAL IVP SCH (09:00)
--- NOTE | 2018-11-04 11:39 | ASMTCMCOM ---
CM Note CM Note Notes: Palliative Care meeting held today with pt's sister Janis (Health Care Proxy), CM, Arias from [facility] and Cheryl from [facility]. Goals of care discussed and all parties are in agreement that pt is not safe to return home living independently and would benefit from Nursing Facility with Palliative Support. CM Spoke with pt's pillowcase sewer at the [facility], Leia Robles ([phone] ) who confirmed pt is 100% service connected and has residential benefits. She sent referral form that needs to be filled out by MD, RN and Sign Writer Letterer Or Painter. CM to complete packet and send back to [facility] and then once there is approval refer pt to contracted facilities. Janis is in agreement with any facility that is willing to agree to allowing pt to have controlled drinking. Currently [facility] is getting contract to work with pt and will follow in the community. CM to follow. Plan: [facility] contracted facility. Date Signed: 11/04/2018 11:37 AM Electronically Signed By:RAPHAEL Sun
[2018-11-04] MEDS ORDERED: FUROSEMIDE 40 MG/4 ML VIAL IVP ONE (13:22)
[2018-11-04] MEDS ORDERED: AMPICILLIN/SULBACTAM 3 GM in NS 100 ML IV SCH ×3 (13:34→18:00)
--- NOTE | 2018-11-04 13:42 | HOSPPROG ---
Hospitalist Progress Note Assessment/Plan: # acute hypoxic resp failure - d/t pneumonia (on CXR today) and pulm edema - will start unasyn for aspiration and additional dose of lasix - tenuous; he is DNR # pneumonia, suspect aspiration - unasyn, doxy # fever - suspect d/t pna # etOH abuse - not clearly withdrawing on my exam, but has received significant ativan - would prefer to hold ativan unless clearly withdrawing - discussed with RN # acute metabolic vs toxic encephalopathy - will follow closely; would prefer to treat agitation with haldol rather than ativan if he becomes agitated # pulm edema - will check echo, lasix 40 iv x 1 # a-fib with RVR - now in sinus - cont amio # GEOVANNA - resolved # severe lactic acidosis - likely hypoperfusion, resolved # ulnar fx - needs to be in a sling - non-op per ortho # thrombocytopenia - SCDs for dvt ppx # DNR; had pall care consult today; sister is mdpoa Subjective: sleeping - wakes up to verbal stimuli; has received significant ativan for CIWA Objective: Vital Signs Temp Pulse Resp BP Pulse Ox 37.0 C 95 18 117/66 97 11/04/18 12:00 11/04/18 12:00 11/04/18 12:00 11/04/18 12:00 11/04/18 12:00 Laboratory Results 11/04/18 03:40 11/04/18 03:40 11/03/18 11/04/18 11/05/18 05:59 05:59 05:59 Intake Total 2715.3 833 867 Output Total 450 1750 Balance 2265.3 -917 867 PT 18.4 SEC (12.0-15.0) H 10/30/18 19:27 INR 1.61 (0.83-1.16) H 10/30/18 19:27 chart reviewed CXRs personally reviewed - Physical Exam Constitutional: uncomfortable, cachectic Cardiovascular: regular rate and rhythym, no murmur, rub, or gallop Respiratory: inspiratory crackles, respiratory distress (tachypneic) Gastrointestinal: soft, non-tender abdomen, no palpable masses, No guarding, No rebound, No distension ICD10 Worksheet Patient Problems: Problems Problem Status Onset Alcoholic intoxication Acute Leg pain, medial Acute Pain in superior right lower extremity Acute Severe sepsis Acute Alcohol abuse Acute Rhabdomyolysis Acute Elevated troponin Acute Atrial fibrillation Acute Olecranon fracture Acute
[2018-11-04] MEDS ORDERED: ACETAMINOPHEN 650 MG SUPP PR PRN (16:00)
[2018-11-04] MEDS: DOXYCYCLINE INJ 100 MG in NS 250 ML IV SCH ×2 (16:13→20:38)
[2018-11-04] MEDS ORDERED: POTASSIUM CL 20 MEQ TAB PO ONE (16:15)
[2018-11-04] MEDS: PIPERACILLIN/TAZO 4.5 GM/DEX 100 ML IV SCH (18:06)
[2018-11-05] MEDS: PIPERACILLIN/TAZO 4.5 GM/DEX 100 ML IV SCH ×4 (00:01→17:52)
[2018-11-05] MEDS: IPRATROPIUM/ALBUTEROL 3 ML DEYVIAL IH SCH ×3 (00:22→10:33)
[2018-11-05] MEDS: LORazepam 2 MG/ML INJ IVP PRN ×5 (01:42→18:22)
[2018-11-05 05:15] LABS: PLATELET COUNT 44 10^3/uL (150-400)
--- NOTE | 2018-11-05 09:31 | HOSPPROG ---
Hospitalist Progress Note Assessment/Plan: # goals of care: DNR; sister Janis MOHR who is in agreement; we will not escalate care, no intubation; we will focus on comfort for now, but will not stop abx or supplemental O2; she would like more family (her sons, her ) to see him before he passes if possible; ativan for agitation, consider morphine; hospice eval today # acute hypoxic resp failure - d/t pneumonia (on CXR today) and pulm edema - cont abx and has received lasix # pneumonia, suspect aspiration - cont zosyn, doxy # pulm edema -echo still pending, unlikely to roving changer at this point # fever - d/t pna # etOH abuse - not withdrawing currently # acute metabolic vs toxic encephalopathy - worse today # a-fib with RVR - now in sinus - cont amio # GEOVANNA - resolved # severe lactic acidosis - likely hypoperfusion, resolved # ulnar fx - needs to be in a sling - non-op per ortho # thrombocytopenia - SCDs for dvt ppx Subjective: less responsive today;. had been agitated earlier which improved with ativan. discussed with sister regarding prognosis, goals of care - she is certain he would not want to escalate care at this time Objective: Vital Signs Temp Pulse Resp BP Pulse Ox 38.2 C 105 H 24 H 129/70 H 90 L 11/05/18 08:24 11/05/18 07:51 11/05/18 07:51 11/05/18 07:51 11/05/18 07:51 Laboratory Results 11/05/18 03:20 11/05/18 03:20 11/04/18 11/05/18 11/06/18 05:59 05:59 05:59 Intake Total 833 1067 Output Total 1750 2150 Balance -917 -1083 PT 18.4 SEC (12.0-15.0) H 10/30/18 19:27 INR 1.61 (0.83-1.16) H 10/30/18 19:27 - Time Spent With Patient Time Spent with Patient: greater than 35 minutes Time Spent with Patient: Greater than 35 minutes spent on this patients care, greater than 50% of time spent counseling, educating, and coordinating care regarding the above mentioned plan. - Physical Exam Constitutional: other (tachypneic, but does not appear distressed) ICD10 Worksheet Patient Problems: Problems Problem Status Onset Alcoholic intoxication Acute Leg pain, medial Acute Pain in superior right lower extremity Acute Severe sepsis Acute Alcohol abuse Acute Rhabdomyolysis Acute Elevated troponin Acute Atrial fibrillation Acute Olecranon fracture Acute
[2018-11-05] MEDS: DOXYCYCLINE INJ 100 MG in NS 250 ML IV SCH (09:45)
[2018-11-05] MEDS: NICOTINE 21 MG/24 HR PATCH TD SCH (09:50)
[2018-11-05] MEDS: FAMOTIDINE 20 MG TAB PO SCH (09:56)
[2018-11-05] MEDS: THIAMINE HCL 100 MG TAB PO SCH (09:56)
[2018-11-05] MEDS: OLANZapine 10 MG TAB PO SCH (11:08)
[2018-11-05] MEDS: AMIODARONE HCL 200 MG TAB PO SCH (11:08)
--- NOTE | 2018-11-05 16:00 | ASMTCMCOM ---
CM Note CM Note Notes: Met with patient's sister/conservator Janis. She is going to bring her and son here this evening to say goodbye to patient, as MD believes he will pass quickly if O2 is discontinued. Family had been in touch w [facility] for potential services; however, this might not be necessary after moving to comfort measures. rooming house operator Kim helped explain process of comfort measures. Case Management will follow if warranted. [facility] updated. Date Signed: 11/05/2018 03:59 PM Electronically Signed By:Isabel Sorto RN
[2018-11-05 16:48] VITALS: BP 107/72
[2018-11-05] MEDS ORDERED: morphINE 10 MG/0.5 ML UDSYR PO PRN ×2 (18:04→18:34)
--- NOTE | 2018-11-06 06:36 | GDS ---
[f rep st] DISCHARGE SUMMARY DATE OF : 11/05/2018 FINAL DIAGNOSES: 1. Acute hypoxic respiratory failure. 2. Aspiration pneumonia. 3. Pulmonary edema. 4. Sepsis due to pneumonia. 5. Alcohol abuse. 6. Acute metabolic versus toxic encephalopathy. 7. Atrial fibrillation with rapid ventricular response. 8. Acute kidney injury. 9. Severe lactic acidosis. 10. Ulnar fracture. 11. Thrombocytopenia. HOSPITAL COURSE: This is a 63-year-old man with a history of alcohol abuse, as well as schizophrenia who was admitted after being found down. He had been seen at the ED prior in the day for intoxicati on, cleared and then released. He was treated here for severe acidosis. He had an episode of atrial fibrillation with rapid ventricular response. He has been slowly improving. However, 2 days prior to his , he decompensated significantly. He had a very significant what is likely an aspiration pneumonia. He was treated aggressively with antibiotics including Zosyn as well as doxycycline. I had long discussions with his sister, who is his MDPOA. It is clear that he would not want resuscita tive measures or extremely aggressive medical care. Because of this, we did not escalate his medical care. His respiratory status slowly worsened over the next 2 days. He was requiring very high-flow oxygen to keep his oxygen saturation to just barely acceptable around 90, and he would desat very ea sily. With his sister at his bedside, he on 11/05 at 6:50 p.m. [facility] [place] was notified. [facility] was not notified about this case. /[id number]/[id number]
== END 2018-11-05 20:45 | disposition expired | DRG 871 ==
LOC: EDUNIT# → F2N 22:20 → F2W 11-03 16:52
PROVIDERS: ADMIT Internal Medicine; ATTEND Internal Medicine
DX: A41.9 Sepsis, unspecified organism (principal); J96.01 Acute respiratory failure with hypoxia; I48.91 Unspecified atrial fibrillation; G92 Toxic encephalopathy; F10.239 Alcohol dependence with withdrawal, unspecified; J69.0 Pneumonitis due to inhalation of food and vomit; N17.9 Acute kidney failure, unspecified; M62.82 Rhabdomyolysis; S52.022A Displaced fracture of olecranon process without intraarticular extension of left ulna, initial encounter for closed fracture; W19.XXXA Unspecified fall, initial encounter; E87.1 Hypo-osmolality and hyponatremia; E87.2 Acidosis; R74.0 Nonspecific elevation of levels of transaminase and lactic acid dehydrogenase [LDH]; F20.9 Schizophrenia, unspecified; J44.9 Chronic obstructive pulmonary disease, unspecified; F17.210 Nicotine dependence, cigarettes, uncomplicated; Z59.0 Homelessness; Z91.81 History of falling
CPT/HCPCS: 80305; 82435-PO; 82565-PO; 82947-PO; 84132-PO; 84295-PO; 84484-ER; 84520-PO; 85014-ER; 92526-GN; 92610-GN; 96365; 96366; 97161-GP; 97167-GO; 97530-GO; 97530-GP; G0480; J0282; J0295; J1160; J1650; J1940; J2060; J2543; J3411; Q9967